=== PATIENT | male | born 1985 | race Caucasian/White ===

== ENCOUNTER 2018-01-17 13:43 | Inpatient (IN) | payer MEDICAID, SELFPAY ==
[2018-01-17] MEDS: HALOPERIDOL 5 MG TAB PO (14:22)
[2018-01-17] MEDS: ACETAMINOPHEN 325 MG TAB PO (14:24)
[2018-01-17 14:51] LABS: HEMOGLOBIN 15.1 g/dl (13.5-17.5); MEAN CORPUSCULAR HEMOGLOBIN 32.4 pg (27.0-33.0); MEAN CORPUSCULAR HGB CONC 35.1 g/dl (32.0-36.5); MEAN CORPUSCULAR VOLUME 92.3 fl (80.0-96.0); PLATELET COUNT, AUTOMATED 263 10^3/uL (150-450); RED BLOOD COUNT 4.66 10^6/uL (4.30-6.10); RED CELL DISTRIBUTION WIDTH 12.7 % (11.5-14.5); WHITE BLOOD COUNT 6.9 10^3/uL (4.0-10.0)
[2018-01-17 15:14] LABS: AMPHETAMINES LEVEL URINE NEGATIVE (NEGATIVE); BARBITURATES URINE NEGATIVE (NEGATIVE); BENZODIAZEPINES URINE NEGATIVE (NEGATIVE); CANNABINOIDS URINE NEGATIVE (NEGATIVE); COCAINE METABOLITE URINE NEGATIVE (NEGATIVE); METHADONE URINE NEGATIVE (NEGATIVE); OPIATES URINE NEGATIVE (NEGATIVE); PHENCYCLIDINE URINE NEGATIVE (NEGATIVE)
[2018-01-17 15:21] LABS: ALBUMIN/GLOBULIN RATIO 1.33 (1.00-1.93); ALKALINE PHOSPHATASE 80 U/L (45-117); ALT/SGPT 23 U/L (12-78); ANION GAP 11 MEQ/L (8-16); AST/SGOT 13 U/L (7-37); BILIRUBIN,DIRECT 0.1 MG/DL (0.0-0.2); BILIRUBIN,TOTAL 0.5 MG/DL (0.2-1.0); BLOOD UREA NITROGEN 8 MG/DL (7-18); CALCIUM LEVEL 8.8 MG/DL (8.5-10.1); CARBON DIOXIDE LEVEL 25 MEQ/L (21-32); CHLORIDE LEVEL 110 MEQ/L (98-107); CREATININE FOR GFR 1.47 MG/DL (0.70-1.30); ETHYL ALCOHOL (ETHANOL) 0.084 % (0.000-0.010); GLOMERULAR FILTRATION RATE 59.1 (>60); GLUCOSE, FASTING 86 MG/DL (70-100); POTASSIUM SERUM 3.6 MEQ/L (3.5-5.1); SALICYLATE LEVEL 2.4 MG/DL (5.0-30.0); SODIUM LEVEL 146 MEQ/L (136-145)
[2018-01-17 15:28] LABS: ACETAMINOPHEN LEVEL < 2.0 UG/ML (10.0-30.0)
[2018-01-17] MEDS ORDERED: MAALOX 30 ML SUSP *UDC PO (17:15)
[2018-01-17] MEDS ORDERED: MOM 30ML SUSPENSION UDC PO (17:15)
[2018-01-17] MEDS: traZODone 50 MG TAB PO (22:48)
[2018-01-17] MEDS: ACETAMINOPHEN TAB 650MG DOSE (2X325MG) PO (22:49)
[2018-01-18] MEDS: NICOTINE 21MG/24HR 1 EA TRANSDERMAL TD (08:58)
[2018-01-18 11:55] LABS: ANION GAP 7 MEQ/L (8-16); BLOOD UREA NITROGEN 10 MG/DL (7-18); CALCIUM LEVEL 8.8 MG/DL (8.5-10.1); CARBON DIOXIDE LEVEL 28 MEQ/L (21-32); CHLORIDE LEVEL 108 MEQ/L (98-107); CREATININE FOR GFR 1.28 MG/DL (0.70-1.30); GLOMERULAR FILTRATION RATE > 60.0 (>60); GLUCOSE, FASTING 82 MG/DL (70-100); POTASSIUM SERUM 4.1 MEQ/L (3.5-5.1); SODIUM LEVEL 143 MEQ/L (136-145)
[2018-01-18] MEDS: PALIPERIDONE 3 MG ER TAB (INVEGA) PO ×2 (12:00→21:25)
[2018-01-18] MEDS: traZODone 50 MG TAB PO (21:24)
[2018-01-19 07:23] LABS: ANION GAP 10 MEQ/L (8-16); BLOOD UREA NITROGEN 10 MG/DL (7-18); CALCIUM LEVEL 8.6 MG/DL (8.5-10.1); CARBON DIOXIDE LEVEL 25 MEQ/L (21-32); CHLORIDE LEVEL 109 MEQ/L (98-107); CREATININE FOR GFR 1.17 MG/DL (0.70-1.30); GLOMERULAR FILTRATION RATE > 60.0 (>60); GLUCOSE, FASTING 86 MG/DL (70-100); POTASSIUM SERUM 3.8 MEQ/L (3.5-5.1); SODIUM LEVEL 144 MEQ/L (136-145)
[2018-01-19] MEDS: PALIPERIDONE 3 MG ER TAB (INVEGA) PO ×2 (08:49→10:18)
[2018-01-19] MEDS: LORazepam 2 MG TAB PO (08:49)
[2018-01-19] MEDS: HALOPERIDOL 5 MG TAB PO (08:49)
[2018-01-19] MEDS: NICOTINE 21MG/24HR 1 EA TRANSDERMAL TD (08:52)
[2018-01-19] MEDS ORDERED: PALIPERIDONE 3 MG ER TAB (INVEGA) PO (09:00)
[2018-01-19] MEDS: OLANZapine ORAL DISINTEGRATING TAB 5MG PO ×2 (12:59→18:19)
[2018-01-19] MEDS: PALIPERIDONE 6 MG ER TAB (INVEGA) PO (21:00)
[2018-01-20] MEDS: OLANZapine ORAL DISINTEGRATING TAB 5MG PO ×5 (06:00→23:17)
[2018-01-20] MEDS: NICOTINE 21MG/24HR 1 EA TRANSDERMAL TD (09:00)
[2018-01-20] MEDS: PALIPERIDONE 6 MG ER TAB (INVEGA) PO ×2 (09:21→21:06)
[2018-01-20] MEDS: ACETAMINOPHEN TAB 650MG DOSE (2X325MG) PO (13:13)
[2018-01-21] MEDS: OLANZapine ORAL DISINTEGRATING TAB 5MG PO ×3 (06:19→17:41)
[2018-01-21] MEDS: NICOTINE 21MG/24HR 1 EA TRANSDERMAL TD (09:00)
[2018-01-21] MEDS: PALIPERIDONE 6 MG ER TAB (INVEGA) PO ×2 (09:02→20:45)
[2018-01-21] MEDS: LORazepam 2 MG TAB PO (09:03)
[2018-01-21] MEDS: traZODone 50 MG TAB PO (20:45)
[2018-01-22] MEDS: OLANZapine ORAL DISINTEGRATING TAB 5MG PO ×4 (00:15→20:04)
[2018-01-22] MEDS: NICOTINE 21MG/24HR 1 EA TRANSDERMAL TD (09:00)
[2018-01-22] MEDS: PALIPERIDONE 6 MG ER TAB (INVEGA) PO ×2 (09:00→10:20)
[2018-01-22] MEDS: LORazepam 2 MG TAB PO (13:12)
[2018-01-22] MEDS: PALIPERIDONE PALMITATE 234 MG/1.5 ML INJ (INVEGA SUSTENNA)(J2426) IM (13:51)
[2018-01-22] MEDS: PALIPERIDONE 3 MG ER TAB (INVEGA) PO (20:04)
[2018-01-22] MEDS: traZODone 50 MG TAB PO (20:04)
[2018-01-23] MEDS: OLANZapine ORAL DISINTEGRATING TAB 5MG PO ×2 (08:45→20:25)
[2018-01-23] MEDS: NICOTINE 21MG/24HR 1 EA TRANSDERMAL TD (08:46)
[2018-01-23] MEDS: PALIPERIDONE 3 MG ER TAB (INVEGA) PO ×2 (08:46→20:25)
[2018-01-23] MEDS: LORazepam 2 MG TAB PO ×2 (14:16→20:25)
[2018-01-23] MEDS: traZODone 50 MG TAB PO (20:25)
[2018-01-24] MEDS: PALIPERIDONE 3 MG ER TAB (INVEGA) PO ×2 (08:54→21:24)
[2018-01-24] MEDS: OLANZapine ORAL DISINTEGRATING TAB 5MG PO ×2 (08:55→21:24)
[2018-01-24] MEDS: NICOTINE 21MG/24HR 1 EA TRANSDERMAL TD (09:00)
[2018-01-25] MEDS: OLANZapine ORAL DISINTEGRATING TAB 5MG PO (10:01)
[2018-01-25] MEDS: PALIPERIDONE 3 MG ER TAB (INVEGA) PO (10:02)
[2018-01-25] MEDS: PALIPERIDONE PALMITATE 156 MG/1ML INJ(INVEGA SUSTENNA)(J2426) IM (10:05)
[2018-01-25] MEDS: NICOTINE 21MG/24HR 1 EA TRANSDERMAL TD (10:05)
== END 2018-01-25 12:20 | disposition home or self-care (01) | DRG 750 ==
LOC: M PSY 01-21 20:00 → M ED 13:43 → M PSY 01-18 18:35 → M ED INP 17:05 → M PSY 21:33
DX: F20.0 Paranoid schizophrenia (principal); E87.0 Hyperosmolality and hypernatremia; R45.851 Suicidal ideations; Z91.14 Patient's other noncompliance with medication regimen; F32.9 Major depressive disorder, single episode, unspecified; F17.200 Nicotine dependence, unspecified, uncomplicated; R79.89 Other specified abnormal findings of blood chemistry; R51 Headache; S51.811A Laceration without foreign body of right forearm, initial encounter; S51.812A Laceration without foreign body of left forearm, initial encounter; Z79.899 Other long term (current) drug therapy; Z88.5 Allergy status to narcotic agent; Z91.5 Personal history of self-harm; Y92.9 Unspecified place or not applicable; Y93.89 Activity, other specified; X78.9XXA Intentional self-harm by unspecified sharp object, initial encounter

== ENCOUNTER 2018-12-19 20:09 | Inpatient (IN) | payer MEDICAID, OTHER ==
[~2018-12-19 20:09] MED LIST: EXCETAB81 PO; INVE234I IM; OLAN5ZYD PO; PALI1TAB2 PO; TRAZ1TAB10 PO
[2018-12-19 20:51] LABS: HEMOGLOBIN 15.3 g/dl (13.5-17.5); MEAN CORPUSCULAR HEMOGLOBIN 33.6 pg (27.0-33.0); MEAN CORPUSCULAR HGB CONC 36.4 g/dl (32.0-36.5); MEAN CORPUSCULAR VOLUME 92.1 fl (80.0-96.0); PLATELET COUNT, AUTOMATED 275 10^3/uL (150-450); RED BLOOD COUNT 4.56 10^6/uL (4.30-6.10); WHITE BLOOD COUNT 9.1 10^3/uL (4.0-10.0)
[2018-12-19] MEDS ORDERED: LIDOCAINE 1% MDV 20ML VIAL SC ONE (21:15)
[2018-12-19] MEDS ORDERED: ADACEL/BOOSTRIX VACCINE (DIPHTH/PERTUSS/ACELL/TETANUS)0.5ML SYR (90715) IM ONE (21:15)
[2018-12-19 21:24] LABS: ACETAMINOPHEN LEVEL < 2.0 UG/ML (10.0-30.0); ALBUMIN 3.9 GM/DL (3.2-5.2); ALT/SGPT 26 U/L (12-78); BILIRUBIN,DIRECT 0.2 MG/DL (0.0-0.2); BILIRUBIN,TOTAL 0.5 MG/DL (0.2-1.0); BLOOD UREA NITROGEN 7 MG/DL (7-18); CALCIUM LEVEL 8.8 MG/DL (8.5-10.1); CARBON DIOXIDE LEVEL 23 MEQ/L (21-32); CHLORIDE LEVEL 111 MEQ/L (98-107); CREATININE FOR GFR 1.31 MG/DL (0.70-1.30); ETHYL ALCOHOL (ETHANOL) 0.198 % (0.000-0.010); GLOMERULAR FILTRATION RATE > 60.0 (>60); GLUCOSE, FASTING 96 MG/DL (70-100); POTASSIUM SERUM 3.4 MEQ/L (3.5-5.1); SODIUM LEVEL 143 MEQ/L (136-145); TOTAL PROTEIN 6.7 GM/DL (6.4-8.2)
[2018-12-19] MEDS ORDERED: POTASSIUM CHLORIDE 10 MEQ SR TABLET PO ONE (22:30)
[2018-12-20 00:15] LABS: AMPHETAMINES LEVEL URINE NEGATIVE (NEGATIVE); BARBITURATES URINE NEGATIVE (NEGATIVE); BENZODIAZEPINES URINE NEGATIVE (NEGATIVE); CANNABINOIDS URINE NEGATIVE (NEGATIVE); COCAINE METABOLITE URINE NEGATIVE (NEGATIVE); METHADONE URINE NEGATIVE (NEGATIVE); OPIATES URINE NEGATIVE (NEGATIVE); PHENCYCLIDINE URINE NEGATIVE (NEGATIVE)
[2018-12-20] MEDS ORDERED: MOM 30ML SUSPENSION UDC PO PRN (03:00)
[2018-12-20] MEDS ORDERED: ACETAMINOPHEN TAB 650MG DOSE (2X325MG) PO PRN (03:00)
[2018-12-20] MEDS ORDERED: MAALOX 30 ML SUSP *UDC PO PRN (03:00)
[2018-12-20] MEDS ORDERED: LORazepam 2 MG TAB PO PRN ×2 (03:00)
[2018-12-20] MEDS ORDERED: traZODone 50 MG TAB PO PRN (03:00)
[2018-12-20] MEDS ORDERED: HALOPERIDOL 5 MG TAB PO PRN (03:00)
[2018-12-20 03:48] VITALS: BP 138/75
[2018-12-20] MEDS: ACETAMINOPHEN 500 MG TAB PO ONE ×2 (08:30→08:50)
--- NOTE | 2018-12-20 08:39 | HPEPDOC ---
General Date of Admission Dec 20, 2018 at 02:53 Date of Service: Dec 20, 2018 Attending Physician: MICHELLE MICHAEL MD Chief Complaint The patient is a 33-year-old male admitted with a reason for visit of Unspecified Psychotic Disorder. History of Present Illness Christofer Ortez is a 33 year old male, PMH sig. for depression, alcohol abuse, brought to the ED on account of erratic behavior. On arrival patient supposedly was making comments to office stating he wanted them to shoot him. Also stated to staff, he wanted to fall asleep and never wake up. On assessment, he complains of a headache, denies nausea or vomiting. CT scan completed on admission with results pending.Denies nausea, abdominal pain, chest pain, SOB. Leveraging data was significant for elevated TSH and alcohol level of 0.198 Home Medications No Active Prescriptions or Reported Meds Allergies Coded Allergies: tramadol (Verified Allergy, Unknown, 12/19/18) Past Medical History Medical History Schizophrenia Depression Anxiety Alcohol abuse Surgical History Appendectomy Family History Significant Family History: No pertinent family hx Social History Alcohol: heavy A-FIB/CHADSVASC A-FIB History Current/History of A-Fib/PAF?: No Current PO Anticoag Therapy: No Review of Systems Other systems A limited review of systems is completed due to patient's mental status Physical Examination Other physical findings GENERAL: NAD SKIN : Warm, frontal scalp laceration with staple repair. HEENT: 3 frontal beth, normocephalic, PERRL, moist mucous membrane CARDIOVASCULAR: Regular rate and rhythm, S1S2, no JVD, no edema, distal pulses + palpable RESP: CTAB, no accessory muscle use noted ABDOMEN: BS+ non distended non tender MS: no joint deformities NEURO: Alert and oriented to self and place, CN2-12 grossly intact PSYCH: no anxiety or agitation, appropriate mood and affect. Vital Signs Vital Signs Date Time Temp Pulse Resp B/P (MAP) Pulse Ox O2 Delivery O2 Flow Rate FiO2 12/20/18 03:48 76 138/75 12/20/18 03:48 97.9 16 12/20/18 02:18 98 Room Air Laboratory Data Labs 24H Laboratory Tests 2 12/19/18 20:39: Nucleated Red Blood Cells % (auto) 0.0, Anion Gap 9, Glomerular Filtration Rate > 60.0, Calcium Level 8.8, Aspartate Amino Transf (AST/SGOT) 21, Alanine Aminotransferase (ALT/SGPT) 26, Alkaline Phosphatase 79, Total Bilirubin 0.5, Di rect Bilirubin 0.2, Total Protein 6.7, Albumin 3.9, Albumin/Globulin Ratio 1.39, Thyroid Stimulating Hormone (TSH) 5.910H, Salicylates Level 2.0L, Acetaminophen Level < 2.0L, Ethyl Alcohol Level 0.198H 12/19/18 23:47: Urine Amphetamines Screen NEGATIVE, Urine Benzodiazepines Screen NEGATIVE, Urine Opiates Screen NEGATIVE, Urine Methadone Screen NEGATIVE, Urine Barbiturates Screen NEGATIVE, Urine Phencyclidine Screen NEGATIVE, Urine Cocaine Metabolite Screen NEGATIVE, Urine Cannabinoids Screen NEGATIVE CBC/BMP Laboratory Tests 12/19/18 20:39 Red Blood Count 4.56, Mean Corpuscular Volume 92.1, Mean Corpuscular Hemoglobin 33.6 H, Mean Corpuscular Hemoglobin Concent 36.4, Red Cell Distribution Width 13.2 Assessment/Plan Headache -1000 mg Tylenol now -CT brain completed on admission with report pending -push fluids -Reevaluation based on CT brain findings Head laceration -s/p repair with 3 beth -complaining of headache on evaluation -follow CT scan findings Hypokalemia -repleted in ED -monitor levels and replete to keep >4 -assess for other metabolic derangement Elevated Creatinine -likely due to dehydration -monitor levels daily with treatment ETOH Abuse -ETOH 0.198 on admit -CIWA protocol per primary team Schizophrenia/depression -Management by primary team Plan / VTE VTE Prophylaxis Ordered?: No VTE Exclusion Mechanical Proph: Low Risk for VTE MITCHELL SHEA Dec 20, 2018 08:39
[2018-12-20] MEDS: THIAMINE 100 MG TAB PO SCH ×2 (09:00→21:00)
[2018-12-20] MEDS: MULTIVITAMINS/MINERALS THERAP 1 TAB PO SCH (09:00)
[2018-12-20] MEDS: FOLIC ACID 1 MG TAB PO SCH (09:00)
--- NOTE | 2018-12-20 09:32 | MHHPEPDOC ---
General Date Of Admission: Dec 20, 2018 Legal Status: 9.39 Chief Complaint "something to do with psych..I think" History of Present Illness HISTORY OF THE PRESENT ILLNESS: Patient is a 33 -year-old , male, who was brought to the ER after PD found him shaking road signs while acting obvious ly intoxicated. During his confrontation with police Mr. Beaulieu commented that the police should just shoot him, that he wanted to go to sleep and never wake up, and that he had a history of depression. Per PD, Mr. Beaulieu repeatedly and purposely hit his head against the cruiser read window on the way to the hospital, causing a laceration on his forehead. Per ED, Mr. Beaulieu stated that he had only 1 beer but his BAL was found to be 0.198 at the hospital. Mr. Beaulieu has been admitted to [facility] before in 2017 for psychotic symptoms (AH/VH) + SI and was diagnosed with paranoid schizophrenia and depression unspecified. He also has a history of alcohol, opioid, and nicotine abuse. Psychiatric Review of Systems Depression (2 or more weeks): depressed mood, insomnia/hypersomnia, difficulty concentrating, suicidal thoughts Kylee (4 or more days of): distractibility, engages in risky behavior, other (when intoxicated) Psychosis: denies (has a hx of auditory and visual hallucinations) PTSD: denies Anxiety: situational anxiety (Large crowds) Anxiety/ 6 months or more of: restlessness, keyed up, difficulty concentrating, irritability Past Psychiatric History Previous Psychiatric Diagnosis: Paranoid schizophrenia. Unspecified depression. Previous Psychiatric Admissions: Admitted in January 2018 to [facility] for SI + AH/VH Suicide Attempts: 1 attempt. Cut himself with knife. Psychiatric Follow-up: Went to [facility] after 2018 [facility] hospitalization. Picked up meds but haven't taken them in awhile. Psychiatric medications: Not currently taking any medications. "its been awhile since i've taken them" Past Medical History Head Injury: Yes (laceration on forehead from banging head against police car window. ) Seizures: No Hospitalizations: Yes ([facility] in January 2018 for AH,VH, self inflicted harm and connolly. ) Surgeries: Yes (Appendectomy) Family Medical/Psychiatric HX Psychiatric Disorders: No Addiction: No Suicide Attemps/Completions: No Addiction History nicotine, alcohol, opioids (Denies addiction or misuse but file says had dependence and withdrawals. ) Social History Childhood: Grew up in [place]. Parents split up when he was a kid. Lived with mom. Says childhood was "good. Not good. I don't know" Abuse/Trauma: "I don't know its hard to think" Current Living Situation: Lives alone in [place]. Moved from [place] in 2018 Education: Didn't graduate HS, unsure where we went Employment: Hasn't worked in a while. Social Support: Sister lives in area but doesn't communicate with her that often Legal: denies Marital: Single. Has 2 boys. Mental Status Examination General Appearance: unkempt, hospital scubs/clothing, lacerations, healed scars Build: average Demeanor: average, mistrustful, withdrawn, very figety Eye Contact: average Activity: average, anxious Behavior: cooperative Speech: clear Mood: euthymic, irritable Mood "alright" Affect: full, appropriate, congruent, anxious Thought Process: logical/linear, slow Thought Content (Delusions): denies SI, HI, AVH Thought Content (Other): none reported, appropriate Thought Content (Aggressive): none reported Perception (Hallucinations): none reported Perception (Other): none reported Cognition (Impairment of): none reported Cognition(Intelligence Est.): average Oriented: Awake, Alert, Oriented times three Insight: fair Judgment: Fair Psychosis: Denies Diagnoses unspecified depression alcohol use d/o 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 Beaulieu came into [facility] this morning after PD found him shaking street signs and states he's here b/c "I gashed my head open... I think I asked the form designer to shoot me" while intoxicated. He is anger that he has to be here. Mr. Beaulieu's denies that he wants to harm himself and would like to go home soon. Feels better after he's sobered up he states. He denies SI or HI. He is unable to say why he shook the street signs. Denies symptoms of depression. Denies alcohol withdrawal. Pt is cooperative on the unit and when seen. He denies hallucination, delusions. Feels safe here. Initial Treatment Plan 1. Patient was admitted on a status. 2. Complete history was obtained. 3. With patients permission, family will be contacted and database will be expanded. 4. Patients medication regimen will be reviewed and changed accordingly. 5. Patient will be provided with protected environment. 6. Patient will be treated with individual, group, and milieu therapies. 7. Patient will receive supportive psych-education. 8. Discharge planning will commence immediately. 9. Outpatient follow-up treatment will be strongly recommended. 10. The initial treatment plan will focus initially on: * Depression. * Risk for suicide. * Substance abuse. 11. monitor for safety ESTIMATED LENGTH OF STAY: 3-5 DAYS. TIME SPENT COUNSELING AND COORDINATING INITIAL CARE: 60 minutes. Vital Signs Vital Signs Date Time Temp Pulse Resp B/P (MAP) Pulse Ox O2 Delivery O2 Flow Rate FiO2 12/20/18 03:48 76 138/75 12/20/18 03:48 97.9 16 12/20/18 02:18 98 Room Air Laboratory Data 24H Labs Laboratory Tests 2 12/19/18 20:39: Nucleated Red Blood Cells % (auto) 0.0, Anion Gap 9, Glomerular Filtration Rate > 60.0, Calcium Level 8.8, Aspartate Amino Transf (AST/SGOT) 21, Alanine Aminotransferase (ALT/SGPT) 26, Alkaline Phosphatase 79, Total Bilirubin 0.5, Direct Bilirubin 0.2, Total Protein 6.7, Albumin 3.9, Albumin/Globulin Ratio 1.39, Thyroid Stimulating Hormone (TSH) 5.910H, Salicylates Level 2.0L, Acetaminophen Level < 2.0L, Ethyl Alcohol Level 0.198H 12/19/18 23:47: Urine Amphetamines Screen NEGATIVE, Urine Benzodiazepines Screen NEGATIVE, Urine Opiates Screen NEGATIVE, Urine Methadone Screen NEGATIVE, Urine Barbiturates Screen NEGATIVE, Urine Phencyclidine Screen NEGATIVE, Urine Cocaine Metabolite Screen NEGATIVE, Urine Cannabinoids Screen NEGATIVE CBC/BMP Laboratory Tests 12/19/18 20:39 Red Blood Count 4.56, Mean Corpuscular Volume 92.1, Mean Corpuscular Hemoglobin 33.6 H, Mean Corpuscular Hemoglobin Concent 36.4, Red Cell Distribution Width 13.2 Medications No Active Prescriptions or Reported Meds Allergies Coded Allergies: tramadol (Verified Allergy, Unknown, 12/19/18) JANN DAVIS OMS-3 Dec 20, 2018 08:13 JULIANA MEJIA DO Dec 20, 2018 09:32
[2018-12-20] MEDS: NICOTINE 21MG/24HR 1 EA TRANSDERMAL TD SCH (10:56)
[2018-12-20 11:05] LABS: ALBUMIN 3.9 GM/DL (3.2-5.2); ALT/SGPT 25 U/L (12-78); BILIRUBIN,TOTAL 0.7 MG/DL (0.2-1.0); BLOOD UREA NITROGEN 5 MG/DL (7-18); CALCIUM LEVEL 9.4 MG/DL (8.5-10.1); CARBON DIOXIDE LEVEL 33 MEQ/L (21-32); CHLORIDE LEVEL 109 MEQ/L (98-107); CREATININE FOR GFR 1.03 MG/DL (0.70-1.30); GLOMERULAR FILTRATION RATE > 60.0 (>60); GLUCOSE, FASTING 83 MG/DL (70-100); SODIUM LEVEL 144 MEQ/L (136-145); TOTAL PROTEIN 6.6 GM/DL (6.4-8.2)
--- NOTE | 2018-12-20 11:42 | REP ---
CT HEAD WITHOUT CONTRAST: HISTORY: Trauma COMPARISON: 01/17/2018 There is no intraparenchymal hemorrhage, mass or midline shift. The ventricular system is normal in appearance. There is no extracerebral collection. There is no fracture. Mucosal thickening is present in the left ethmoid sinus. Soft tissue swelling is present over the left frontal bone. IMPRESSION: There is no intracranial lesion. Electronically Signed by Everardo Orta MD 12/20/2018 12:24 P
--- NOTE | 2018-12-20 11:43 | REP ---
CT CERVICAL SPINE WITHOUT CONTRAST: HISTORY: Trauma. There is no acute fracture or subluxation. A disc bulge is present at the C5-6 level. There is minimal narrowing of the spinal canal. There is no other disc bulge or herniation. The remaining neural foramina are patent. The intervertebral discs are normal in height. T here is loss of the normal lordotic curve. IMPRESSION: 1. There is no acute fracture or subluxation. 2. There is cervical spondylosis at the C5-6 level. Electronically Signed by Everardo Orta MD 12/20/2018 12:24 P
[2018-12-20 18:00] VITALS: BP 140/81
[2018-12-20 22:34] VITALS: BP 140/81
[2018-12-21 06:45] VITALS: BP 115/71
[2018-12-21 06:56] VITALS: BP 115/71
[2018-12-21 07:07] LABS: HEMATOCRIT 42.6 % (42.0-52.0); HEMOGLOBIN 14.9 g/dl (13.5-17.5); MEAN CORPUSCULAR VOLUME 94.5 fl (80.0-96.0); PLATELET COUNT, AUTOMATED 228 10^3/uL (150-450); RED BLOOD COUNT 4.51 10^6/uL (4.30-6.10)
[2018-12-21 07:29] LABS: ALBUMIN 3.5 GM/DL (3.2-5.2); ALT/SGPT 25 U/L (12-78); BILIRUBIN,TOTAL 1.2 MG/DL (0.2-1.0); BLOOD UREA NITROGEN 8 MG/DL (7-18); CALCIUM LEVEL 9.1 MG/DL (8.5-10.1); CARBON DIOXIDE LEVEL 30 MEQ/L (21-32); CHLORIDE LEVEL 108 MEQ/L (98-107); CREATININE FOR GFR 1.23 MG/DL (0.70-1.30); GLOMERULAR FILTRATION RATE > 60.0 (>60); GLUCOSE, FASTING 85 MG/DL (70-100); MAGNESIUM LEVEL 2.1 MG/DL (1.8-2.4); POTASSIUM SERUM 3.9 MEQ/L (3.5-5.1); SODIUM LEVEL 143 MEQ/L (136-145); TOTAL PROTEIN 6.3 GM/DL (6.4-8.2)
[2018-12-21] MEDS: NICOTINE 21MG/24HR 1 EA TRANSDERMAL TD SCH (09:00)
[2018-12-21] MEDS: THIAMINE 100 MG TAB PO SCH ×2 (09:00→21:00)
[2018-12-21] MEDS: MULTIVITAMINS/MINERALS THERAP 1 TAB PO SCH (09:00)
[2018-12-21] MEDS: FOLIC ACID 1 MG TAB PO SCH (09:00)
--- NOTE | 2018-12-21 09:05 | IPNPDOC ---
Text Note Date of Service The patient was seen on 12/21/18. NOTE Christofer Ortez is a 33 year old male, PMH sig. for depression, alcohol ab use, brought to the ED on account of erratic behavior. Subjective: Denies headache, states he feels fine this morning, no chest pain, no shortness of breath. Physical Examination GENERAL: NAD SKIN : Warm, frontal scalp laceration with staple repair. HEENT: 3 frontal beth, normocephalic, PERRL, moist mucous membrane CARDIOVASCULAR: Regular rate and rhythm, S1S2, no JVD, no edema, distal pulses + palpable RESP: CTAB, no accessory muscle use noted ABDOMEN: BS+ non distended non tender MS: no joint deformities NEURO: Alert and oriented to self and place, CN2-12 grossly intact PSYCH: no anxiety or agitation, appropriate mood and affect. Assessment/Plan Headache -CT brain negative for intracranial abnormality -continue to push fluids Head laceration -s/p repair with 3 beth -staple removal when scalp laceration healed Hypokalemia -repleted, normalized -Mg levels WNL Elevated Creatinine -likely due to dehydration -resolved ETOH Abuse -ETOH 0.198 on admit -CIWA protocol per primary team Schizophrenia/depression -Management by primary team Christina ARNOLD I+O VSChristina I+O Laboratory Tests 12/20/18 09:41 Calcium Level 9.4, Aspartate Amino Transf (AST/SGOT) 22, Alanine Aminotransferase (ALT/SGPT) 25, Alkaline Phosphatase 83, Total Bilirubin 0.7, Total Protein 6.6, Albumin 3.9 12/21/18 06:48 Calcium Level 9.1, Aspartate Amino Transf (AST/SGOT) 18, Alanine Aminotransferase (ALT/SGPT) 25, Alkaline Phosphatase 84, Total Bilirubin 1.2 #H, Total Protein 6.3 L, Albumin 3.5, Red Blood Count 4.51, Mean Corpuscular Volume 94.5, Mean Corpuscular Hemoglobin 33.0, Mean Corpuscular Hemoglobin Concent 35.0, Red Cell Distribution Width 13.3 Vital Signs Date Time Temp Pulse Resp B/P (MAP) Pulse Ox O2 Delivery O2 Flow Rate FiO2 12/21/18 06:56 68 115/71 12/21/18 06:45 98.0 16 12/20/18 02:18 98 Room Air OTUBELU,ADAORA C. [facility] Dec 21, 2018 09:05
--- NOTE | 2018-12-21 10:39 | MHIPNPDOC ---
[facility] Progress Note Progress Note DATE OF SERVICE: 12/21/18 HISTORY: Patient is a 33 -year-old , male, who was brought to the ER after PD found him shaking road signs while acting obviously intoxicated. During his confrontation with police Mr. Beaulieu commented that the police should just shoot him, that he wanted to go to sleep and never wake up, and that he had a history of depression. Per PD, Mr. Beaulieu repeatedly and purposely hit his head against the cruiser read window on the way to the hospital, causing a laceration on his forehead. Per ED, Mr. Beaulieu stated that he had only 1 beer but his BAL was found to be 0.198 at the hospital. Mr. Beaulieu has been admitted to [facility] before in 2018 for psychotic symptoms (AH/VH) + SI and was diagnosed with paranoid schizophrenia and depression unspecified. He also has a history of alcohol, opioid, and nicotine abuse. Mr. Beaulieu came into [facility] this morning after PD found him shaking street signs and states he's here b/c "I gashed my head open... I think I asked the pvc loader to shoot me" while intoxicated. He is anger that he has to be here. Mr. Beaulieu's denies that he wants to harm himself and would like to go home soon. Feels better after he's sobered up he states. He denies SI or HI. He is unable to say why he shook the street signs. Denies symptoms of depression. Denies alcohol withdrawal. Pt is cooperative on the unit and when seen. He denies hallucination, delusions. Feels safe here. VITAL SIGNS: See below. NEW TEST RESULTS: See below. CURRENT MEDICATIONS: See below. MENTAL STATUS EXAMINATION: General Appearance: unkempt, hospital scrubs/clothing, lacerations, healed scars Build: average Demeanor: average, mistrustful, withdrawn, very figety Eye Contact: average Activity: average, anxious Behavior: cooperative Speech: clear Mood: Dysphoric, irritable Mood "I don't know whats going on. I just want to get out of here" Affect: flat, depressed, congruent, anxious Thought Process: Disorganized, slow Thought Content (Delusions): denies SI, HI, AVH Thought Content (Other): none reported, appropriate Thought Content (Aggressive): none reported Perception (Hallucinations): Unknown. Pt was unresponsive to questioning. He just says "I don't know" or nothing at all when asked questions. Perception (Other): Unknown. Pt was unresponsive to questioning. He just says "I don't know" or nothing at all when asked questions. Cognition (Impairment of): memory, attention, states he feels confused Cognition(Intelligence Est.): average Oriented: Pt was in his bed just laying with eyes open staring at ceiling. Knows he is in [facility] but doesn't know what is going on. Insight: poor Judgment: poor Psychosis: Unknown. Pt was unresponsive to questioning. He just says "I don't know" or nothing at all when asked questions. 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 Today, he refused to leave his bed and come into the office for any follow up from yesterday. When asked about hallucinations, reason for being here, or what he can remember from yesterday Carlos just says "I don't know" or remains silent holding his . He says he "just wants to get out of here" so he is probably aware of his location and inability to leave freely. His thought processes seems to have become disorganized and he has been reported to have been responding to internal stimuli by staff. Talked with pt about start invega bid to help his confusion, disorganized thoughts and states "I don't know... I don't think I want to." Asked pt to just give medication a try to see if it helps as he agrees it is "scary" to him and uncomfortable that he feels so confused/disorganized today. Denies SI/HI. MANAGEMENT PLAN: Start Invega Medications: Invega 3mg bid TIME SPENT: 30 minutes. Vital Signs Vital Signs Date Time Temp Pulse Resp B/P (MAP) Pulse Ox O2 Delivery O2 Flow Rate FiO2 12/21/18 06:56 68 115/71 12/21/18 06:45 98.0 16 12/20/18 02:18 98 Room Air Laboratory Data 24H Labs Laboratory Tests 2 12/20/18 09:41: Anion Gap 2L, Glomerular Filtration Rate > 60.0, Blood Urea Nitrogen 5L, Creatinine 1.03, Sodium Level 144, Potassium Level 4.0, Chloride Level 109H, Carbon Dioxide Level 33H, Calcium Level 9.4, Aspartate Amino Transf (AST/SGOT) 22, Alanine Aminotransferase (ALT/SGPT) 25, Alkaline Phosphatase 83, Total Bilirubin 0.7, Total Protein 6.6, Albumin 3.9, Albumin/Globulin Ratio 1.44 12/21/18 06:48: Anion Gap 5L, Glomerular Filtration Rate > 60.0, Blood Urea Nitrogen 8#, Creatinine 1.23, Sodium Level 143, Potassium Level 3.9, Chloride Level 108H, Carbon Dioxide Level 30, Calcium Level 9.1, Aspartate Amino Transf (AST/SGOT) 18 , Alanine Aminotransferase (ALT/SGPT) 25, Alkaline Phosphatase 84, Total Bilirubin 1.2#H, Total Protein 6.3L, Albumin 3.5, Albumin/Globulin Ratio 1.25, Nucleated Red Blood Cells % (auto) 0.0, Magnesium Level 2.1 CBC/BMP Laboratory Tests 12/20/18 09:41 Calcium Level 9.4, Aspartate Amino Transf (AST/SGOT) 22, Alanine Aminotransferase (ALT/SGPT) 25, Alkaline Phosphatase 83, Total Bilirubin 0.7, Total Protein 6.6, Albumin 3.9 12/21/18 06:48 Calcium Level 9.1, Aspartate Amino Transf (AST/SGOT) 18, Alanine Aminotransferase (ALT/SGPT) 25, Alkaline Phosphatase 84, Total Bilirubin 1.2 #H, Total Protein 6.3 L, Albumin 3.5, Red Blood Count 4.51, Mean Corpuscular Volume 94.5, Mean Corpuscular Hemoglobin 33.0, Mean Corpuscular Hemoglobin Concent 35.0, Red Cell Distribution Width 13.3 Current Medications Current Medications Medications (Trade) Dose Ordered Sig/Jean Claude Route PRN Reason Start Time Stop Time Status Last Admin Dose Admin Acetaminophen (Tylenol Tab) 650 mg Q6HP PRN PO HEADACHE or DISCOMFORT 12/20/18 03:00 Al Hydrox/Mg Hydrox/Simethicone (Mylanta) 30 ml Q4HP PRN PO HEARTBURN/INDIGESTION 12/20/18 03:00 Folic Acid (Folic Acid) 1 mg DAILY PO 12/20/18 09:00 Haloperidol (Haldol) 5 mg Q6HP PRN PO anxiety/agitation 12/20/18 03:00 Home Med (Med Rec Complete!) ASDIRECTED XX 12/20/18 03:00 12/20/18 03:06 DC Lorazepam (Ativan) 2 mg ASDIRECTED PRN PO SEE PROTOCOL 12/20/18 03:00 Lorazepam (Ativan) 2 mg Q6HP PRN PO anxiety/agitation 12/20/18 03:00 Magnesium Hydroxide (Milk Of Magnesia) 30 ml DAILYPRN PRN PO CONSTIPATION 12/20/18 03:00 Multivitamins (Theragram-M) 1 tab DAILY PO 12/20/18 09:00 Nicotine (Nicoderm Cq 21mg) 1 patch DAILY TD 12/20/18 09:00 Thiamine HCl (Thiamine HCl) 100 mg BID PO 12/20/18 09:00 12/23/18 08:59 Trazodone HCl (Desyrel) 50 mg QHSP PRN PO INSOMNIA 12/20/18 03:00 Allergies Coded Allergies: tramadol (Verified Allergy, Unknown, 12/19/18) JULIANA MEJIA DO Dec 21, 2018 9:11 am
[2018-12-21] MEDS ORDERED: PALIPERIDONE 3 MG ER TAB (INVEGA) PO ONE (11:15)
[2018-12-21 18:10] VITALS: BP 129/72
[2018-12-21] MEDS: PALIPERIDONE 3 MG ER TAB (INVEGA) PO SCH (21:00)
[2018-12-22 06:48] VITALS: BP 125/81
[2018-12-22 08:31] VITALS: BP 125/81
[2018-12-22] MEDS: FOLIC ACID 1 MG TAB PO SCH (09:00)
[2018-12-22] MEDS: NICOTINE 21MG/24HR 1 EA TRANSDERMAL TD SCH (09:00)
[2018-12-22] MEDS: PALIPERIDONE 3 MG ER TAB (INVEGA) PO SCH ×2 (09:00→21:00)
[2018-12-22] MEDS: THIAMINE 100 MG TAB PO SCH ×2 (09:00→21:00)
[2018-12-22] MEDS: MULTIVITAMINS/MINERALS THERAP 1 TAB PO SCH (09:00)
[2018-12-22 13:53] VITALS: BP 117/69
[2018-12-22 18:00] VITALS: BP 120/75
--- NOTE | 2018-12-22 18:35 | MHIPNPDOC ---
[facility] Progress Note Progress Note DATE OF SERVICE: 12/22/18 HISTORY: Patient is a 33 -year-old , male, who was brought to the ER after PD found him shaking road signs while acting obviously intoxicated. During his confrontation with police Mr. Beaulieu commented that the police should just shoot him, that he wanted to go to sleep and never wake up, and that he had a history of depression. Per PD, Mr. Beaulieu repeatedly and purposely hit his head against the cruiser read window on the way to the hospital, causing a laceration on his forehead. Per ED, Mr. Beaulieu stated that he had only 1 beer but his BAL was found to be 0.198 at the hospital. Mr. Beaulieu has been admitted to [facility] before in 2018 for psychotic symptoms (AH/VH) + SI and was diagnosed with paranoid schizophrenia and depression unspecified. He also has a history of alcohol, opioid, and nicotine abuse. [facility]. [facility]ul[facility] this morning after PD found him shaking street signs and states he's here b/c "I gashed my head open... I think I asked the arm maker to shoot me" while intoxicated. He is anger that he has to be here. Mr. Beaulieu's denies that he wants to harm himself and would like to go home soon. Feels better after he's sobered up he states. He denies SI or HI. He is unable to say why he shook the street signs. Denies symptoms of depression. Denies alcohol withdrawal. Pt is cooperative on the unit and when seen. He denies hallucination, delusions. Feels safe here. VITAL SIGNS: See below. NEW TEST RESULTS: See below. CURRENT MEDICATIONS: See below. MENTAL STATUS EXAMINATION: General Appearance: unkempt, hospital scrubs/clothing, lacerations, healed scars Build: average Demeanor: average, mistrustful, withdrawn, very figety Eye Contact: average Activity: calm, psychomotor retardation Behavior: cooperative Speech: clear, not spontaneous, not fluent. Delayed responses Mood: "OK" Mood "I just want to leave this place" Affect: constricted, flat, depressed Thought Process: Disorganized, slow Thought Content (Delusions): denies SI, HI, AVH Thought Content (Other): none reported, appropriate Thought Content (Aggressive): none reported Perception (Hallucinations): he denies AV hallucinations but he seems to be responding to internal stimuli Perception (Other): Please see above Cognition (Impairment of): executive function, he has thought blocking, he seems confused Cognition(Intelligence Est.): average Oriented: to place and person, not to date or time Insight: poor Judgment: poor Psychosis: he seems to be responding to internal stimuli DIAGNOSES: Paranoid schizophrenia unspecified depression alcohol use d/o 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 Eventually he got up and came to the office to speak but the only thing he spontaneously said was : "When am I going to leave this place?". he kept staring at the wall and smiled occasionally to someone that was not there. When this program writer asked him if he had a job, he smirked and then after awhile he said he worked by himself and I asked where did he work, he answered with a smirk: "wherever the path takes me". He bradley psychomotor retardation, delayed responses and he has problems with his executive functioning at this time, for example, he had problems opening the door in the office. He was able to do it until I told him that he should turn the know to the right. The patient might be a little catatonic, maybe a little bit of Ativan would benefit, just as a trial. w MANAGEMENT PLAN: As per Dr. Wyman. Start Invega Medications: Invega 3mg bid TIME SPENT: 20 minutes. Vital Signs Vital Signs Date Time Temp Pulse Resp B/P (MAP) Pulse Ox O2 Delivery O2 Flow Rate FiO2 12/22/18 18:00 98.1 63 15 120/75 (90) 12/22/18 08:31 98 12/20/18 02:18 Room Air Current Medications Current Medications Medications (Trade) Dose Ordered Sig/Jean Claude Route PRN Reason Start Time Stop Time Status Last Admin Dose Admin Acetaminophen (Tylenol Tab) 650 mg Q6HP PRN PO HEADACHE or DISCOMFORT 12/20/18 03:00 Al Hydrox/Mg Hydrox/Simethicone (Mylanta) 30 ml Q4HP PRN PO HEARTBURN/INDIGESTION 12/20/18 03:00 Folic Acid (Folic Acid) 1 mg DAILY PO 12/20/18 09:00 Haloperidol (Haldol) 5 mg Q6HP PRN PO anxiety/agitation 12/20/18 03:00 Home Med (Med Rec Complete!) ASDIRECTED XX 12/20/18 03:00 12/20/18 03:06 DC Lorazepam (Ativan) 2 mg ASDIRECTED PRN PO SEE PROTOCOL 12/20/18 03:00 Lorazepam (Ativan) 2 mg Q6HP PRN PO anxiety/agitation 12/20/18 03:00 Magnesium Hydroxide (Milk Of Magnesia) 30 ml DAILYPRN PRN PO CONSTIPATION 12/20/18 03:00 Multivitamins (Theragram-M) 1 tab DAILY PO 12/20/18 09:00 Nicotine (Nicoderm Cq 21mg) 1 patch DAILY TD 12/20/18 09:00 Paliperidone (Invega) 3 mg BID PO 12/21/18 21:00 Thiamine HCl (Thiamine HCl) 100 mg BID PO 12/20/18 09:00 12/23/18 08:59 Trazodone HCl (Desyrel) 50 mg QHSP PRN PO INSOMNIA 12/20/18 03:00 Allergies Coded Allergies: tramadol (Verified Allergy, Unknown, 12/19/18) CHARBEL BONNER MD Dec 22, 2018 18:35
[2018-12-23 06:32] VITALS: BP 122/77
[2018-12-23 06:33] VITALS: BP 122/77
[2018-12-23 07:34] VITALS: BP 114/70
[2018-12-23] MEDS: PALIPERIDONE 3 MG ER TAB (INVEGA) PO SCH (09:00)
[2018-12-23] MEDS: MULTIVITAMINS/MINERALS THERAP 1 TAB PO SCH (09:00)
[2018-12-23] MEDS: FOLIC ACID 1 MG TAB PO SCH (09:00)
[2018-12-23] MEDS: NICOTINE 21MG/24HR 1 EA TRANSDERMAL TD SCH (09:00)
--- NOTE | 2018-12-23 13:05 | MHIPNPDOC ---
[facility] Progress Note Progress Note DATE OF SERVICE: 12/23/18 HISTORY: Patient is a 33 -year-old , male, who was brought to the ER after PD found him shaking road signs while acting obviously intoxicated. During his confrontation with police Mr. Beaulieu commented that the police should just shoot him, that he wanted to go to sleep and never wake up, and that he had a history of depression. Per PD, Mr. Beaulieu repeatedly and purposely hit his head against the cruiser read window on the way to the hospital, causing a laceration on his forehead. Per ED, Mr. Beaulieu stated that he had only 1 beer but his BAL was found to be 0.198 at the hospital. Mr. Beaulieu has been admitted to [facility] before in 2018 for psychotic symptoms (AH/VH) + SI and was diagnosed with paranoid schizophrenia and depression unspecified. He also has a history of alcohol, opioid, and nicotine abuse. Mr. Beaulieu came into [facility] this morning after PD found him shaking street signs and states he's here b/c "I gashed my head open... I think I asked the floor coverings salesperson to shoot me" while intoxicated. He is anger that he has to be here. Mr. Beaulieu's denies that he wants to harm himself and would like to go home soon. Feels better after he's sobered up he states. He denies SI or HI. He is unable to say why he shook the street signs. Denies symptoms of depression. Denies alcohol withdrawal. Pt is cooperative on the unit and when seen. He denies hallucination, delusions. Feels safe here. VITAL SIGNS: See below. NEW TEST RESULTS: See below. CURRENT MEDICATIONS: See below. MENTAL STATUS EXAMINATION: General Appearance: unkempt, hospital scrubs/clothing, lacerations, healed scars Build: average Demeanor: average, mistrustful, withdrawn, very figety Eye Contact: average Activity: calm, psychomotor retardation Behavior: cooperative Speech: clear, not spontaneous, not fluent. Delayed responses Mood: "OK" Mood "I just want to leave this place" Affect: constricted, flat, depressed Thought Process: Disorganized, slow Thought Content (Delusions): denies SI, HI, AVH Thought Content (Other): none reported, appropriate Thought Content (Aggressive): none reported Perception (Hallucinations): he denies AV hallucinations but he seems to be responding to internal stimuli Perception (Other): Please see above Cognition (Impairment of): executive function, he has thought blocking, he seems confused Cognition(Intelligence Est.): average Oriented: to place and person, not to date or time Insight: poor Judgment: poor Psychosis: he seems to be responding to internal stimuli DIAGNOSES: Paranoid schizophrenia unspecified depression alcohol use d/o 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 He was sitting on his bed, looking down, looking depressed when I walked into his room. His arms were crossed on his chest. He seems to be depressed, maybe it would be worth trying antidepressants and maybe some Ativan to r/o catatonia would help. I think his Invega could be increased too, I will increase today's night dose to [address] Li will evaluate tomorrow if he continues on 3 mgs PO BID or he shows some improvement with 6 mgs Po QHS and 3 mgs in a.m. MANAGEMENT PLAN: As per Dr. Wyman. Start Invega Medications: Invega 6 mgs PO QHS and 3 mgs PO QAM TIME SPENT: 20 minutes. Vital Signs Vital Signs Date Time Temp Pulse Resp B/P (MAP) Pulse Ox O2 Delivery O2 Flow Rate FiO2 12/23/18 06:33 83 122/77 12/23/18 06:32 98.0 12 12/22/18 08:31 98 12/20/18 02:18 Room Air Current Medications Current Medications Medications (Trade) Dose Ordered Sig/Jean Claude Route PRN Reason Start Time Stop Time Status Last Admin Dose Admin Acetaminophen (Tylenol Tab) 650 mg Q6HP PRN PO HEADACHE or DISCOMFORT 12/20/18 03:00 Al Hydrox/Mg Hydrox/Simethicone (Mylanta) 30 ml Q4HP PRN PO HEARTBURN/INDIGESTION 12/20/18 03:00 Folic Acid (Folic Acid) 1 mg DAILY PO 12/20/18 09:00 Haloperidol (Haldol) 5 mg Q6HP PRN PO anxiety/agitation 12/20/18 03:00 Home Med (Med Rec Complete!) ASDIRECTED XX 12/20/18 03:00 12/20/18 03:06 DC Lorazepam (Ativan) 2 mg ASDIRECTED PRN PO SEE PROTOCOL 12/20/18 03:00 Lorazepam (Ativan) 2 mg Q6HP PRN PO anxiety/agitation 12/20/18 03:00 Magnesium Hydroxide (Milk Of Magnesia) 30 ml DAILYPRN PRN PO CONSTIPATION 12/20/18 03:00 Multivitamins (Theragram-M) 1 tab DAILY PO 12/20/18 09:00 Nicotine (Nicoderm Cq 21mg) 1 patch DAILY TD 12/20/18 09:00 Paliperidone (Invega) 3 mg BID PO 12/21/18 21:00 Thiamine HCl (Thiamine HCl) 100 mg BID PO 12/20/18 09:00 12/23/18 08:59 DC Trazodone HCl (Desyrel) 50 mg QHSP PRN PO INSOMNIA 12/20/18 03:00 Allergies Coded Allergies: tramadol (Verified Allergy, Unknown, 12/19/18) CHARBEL BONNER MD Dec 23, 2018 12:11
[2018-12-23] MEDS ORDERED: diphenhydrAMINE 25 MG CAP PO PRN (13:15)
[2018-12-23 18:00] VITALS: BP 133/90
[2018-12-23] MEDS: PALIPERIDONE 6 MG ER TAB (INVEGA) PO SCH (21:00)
[2018-12-24 06:43] VITALS: BP 93/50
[2018-12-24 07:36] VITALS: BP 93/50
[2018-12-24] MEDS: NICOTINE 21MG/24HR 1 EA TRANSDERMAL TD SCH (09:00)
[2018-12-24] MEDS: MULTIVITAMINS/MINERALS THERAP 1 TAB PO SCH (09:00)
[2018-12-24] MEDS: FOLIC ACID 1 MG TAB PO SCH (09:00)
[2018-12-24] MEDS: PALIPERIDONE 3 MG ER TAB (INVEGA) PO SCH (09:00)
--- NOTE | 2018-12-24 11:08 | MHIPNPDOC ---
[facility] Progress Note Progress Note DATE OF SERVICE: 12/24/18 HISTORY: Patient is a 33 -year-old , male, who was brought to the ER after PD found him shaking road signs while acting obviously intoxicated. During his confrontation with police Mr. Beaulieu commented that the police should just shoot him, that he wanted to go to sleep and never wake up, and that he had a history of depression. Per PD, Mr. Beaulieu repeatedly and purposely hit his head against the cruiser read window on the way to the hospital, causing a laceration on his forehead. Per ED, Mr. Beaulieu stated that he had only 1 beer but his BAL was found to be 0.198 at the hospital. Mr. Beaulieu has been admitted to [facility] before in 2018 for psychotic symptoms (AH/VH) + SI and was diagnosed with paranoid schizophrenia and depression unspecified. He also has a history of alcohol, opioid, and nicotine abuse. Mr. Beaulieu came into [facility] this morning after PD found him shaking street signs and states he's here b/c "I gashed my head open... I think I asked the waterproofing mixer to shoot me" while intoxicated. He is anger that he has to be here. Mr. Beaulieu's denies that he wants to harm himself and would like to go home soon. Feels better after he's sobered up he states. He denies SI or HI. He is unable to say why he shook the street signs. Denies symptoms of depression. Denies alcohol withdrawal. Pt is cooperative on the unit and when seen. He denies hallucination, delusions. Feels safe here. VITAL SIGNS: See below. NEW TEST RESULTS: See below. CURRENT MEDICATIONS: See below. MENTAL STATUS EXAMINATION: General Appearance: unkempt, hospital scrubs/clothing, lacerations, healed scars Build: average Demeanor: average, mistrustful, withdrawn, very fidgety Eye Contact: average Activity: calm, psychomotor retardation Behavior: cooperative Speech: clear, not spontaneous, not fluent. Delayed responses Mood: "OK" Mood "I want to leave" Affect: constricted, flat, depressed Thought Process: Disorganized, slow, blocked Thought Content (Delusions): denies SI, HI Thought Content (Other): appears very paranoid (unable to sit during interview but frequently stands outside his bedroom door watching the milieu Thought Content (Aggressive): none reported Perception (Hallucinations): he denies AV hallucinations but he seems to be responding to internal stimuli Perception (Other): Please see above Cognition (Impairment of): executive function, he has thought blocking, he seems confused Cognition(Intelligence Est.): average Oriented: to place and person, not to date or time Insight: poor Judgment: poor Psychosis: he seems to be responding to internal stimuli DIAGNOSES: Paranoid schizophrenia unspecified depression alcohol use d/o 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 Appears to have thought blocking and is unable to answer questions logically, only gives very short responses most other than when asking to leave. Continues to refuse medication statin he doesn't need them and nothing wrong with him. but he has not been aggressive or inappropriate. He is not attending groups due to paranoia. His insight and judgement are very poor. Will continue to encourage treatment participation, daily showers, and medication compliance. MANAGEMENT PLAN: continue plan Medications: Invega 6 mgs PO QHS and 3 mgs PO QAM ativan 1mg q6hr prn anxiety/agitation haldol 5mg qq6hr prn psychosis/agitation TIME SPENT: 20 minutes. Vital Signs Vital Signs Date Time Temp Pulse Resp B/P (MAP) Pulse Ox O2 Delivery O2 Flow Rate FiO2 12/24/18 07:36 55 93/50 12/24/18 06:43 99.1 14 12/22/18 08:31 98 12/20/18 02:18 Room Air Current Medications Current Medications Medications (Trade) Dose Ordered Sig/Jean Claude Route PRN Reason Start Time Stop Time Status Last Admin Dose Admin Acetaminophen (Tylenol Tab) 650 mg Q6HP PRN PO HEADACHE or DISCOMFORT 12/20/18 03:00 Al Hydrox/Mg Hydrox/Simethicone (Mylanta) 30 ml Q4HP PRN PO HEARTBURN/INDIGESTION 12/20/18 03:00 Diphenhydramine HCl (Benadryl) 25 mg BIDP PRN PO EXTRAPYRAMIDAL SIDE EFFECTS 12/23/18 13:15 Folic Acid (Folic Acid) 1 mg DAILY PO 12/20/18 09:00 Haloperidol (Haldol) 5 mg Q6HP PRN PO anxiety/agitation 12/20/18 03:00 Home Med (Med Rec Complete!) ASDIRECTED XX 12/20/18 03:00 12/20/18 03:06 DC Lorazepam (Ativan) 2 mg ASDIRECTED PRN PO SEE PROTOCOL 12/20/18 03:00 Lorazepam (Ativan) 2 mg Q6HP PRN PO anxiety/agitation 12/20/18 03:00 Magnesium Hydroxide (Milk Of Magnesia) 30 ml DAILYPRN PRN PO CONSTIPATION 12/20/18 03:00 Multivitamins (Theragram-M) 1 tab DAILY PO 12/20/18 09:00 Nicotine (Nicoderm Cq 21mg) 1 patch DAILY TD 12/20/18 09:00 Paliperidone (Invega) 3 mg BID PO 12/21/18 21:00 12/23/18 13:04 DC Paliperidone (Invega) 3 mg QAM PO 12/24/18 09:00 Paliperidone (Invega) 6 mg QHS PO 12/23/18 21:00 Thiamine HCl (Thiamine HCl) 100 mg BID PO 12/20/18 09:00 12/23/18 08:59 DC Trazodone HCl (Desyrel) 50 mg QHSP PRN PO INSOMNIA 12/20/18 03:00 Allergies Coded Allergies: tramadol (Verified Allergy, Unknown, 12/19/18) JULIANA MEJIA DO Dec 24, 2018 9:19 am
[2018-12-24 18:09] VITALS: BP 118/74
[2018-12-24] MEDS: PALIPERIDONE 6 MG ER TAB (INVEGA) PO SCH (21:00)
[2018-12-25 06:45] VITALS: BP 93/50
[2018-12-25] MEDS: NICOTINE 21MG/24HR 1 EA TRANSDERMAL TD SCH (09:00)
[2018-12-25] MEDS: PALIPERIDONE 3 MG ER TAB (INVEGA) PO SCH (09:00)
--- NOTE | 2018-12-25 11:03 | MHIPNPDOC ---
[facility] Progress Note Progress Note DATE OF SERVICE: 12/25/18 HISTORY: Patient is a 33 -year-old , male, who was brought to the ER after PD found him shaking road signs while acting obviously intoxicated. During his confrontation with police Mr. Beaulieu commented that the police should just shoot him, that he wanted to go to sleep and never wake up, and that he had a history of depression. Per PD, Mr. Beaulieu repeatedly and purposely hit his head against the cruiser read window on the way to the hospital, causing a laceration on his forehead. Per ED, Mr. Beaulieu stated that he had only 1 beer but his BAL was found to be 0.198 at the hospital. Mr. Beaulieu has been admitted to [facility] before in 2018 for psychotic symptoms (AH/VH) + SI and was diagnosed with paranoid schizophrenia and depression unspecified. He also has a history of alcohol, opioid, and nicotine abuse. Mr. Beaulieu came into [facility] this morning after PD found him shaking street signs and states he's here b/c "I gashed my head open... I think I asked the rn clinical resource to shoot me" while intoxicated. He is anger that he has to be here. Mr. Beaulieu's denies that he wants to harm himself and would like to go home soon. Feels better after he's sobered up he states. He denies SI or HI. He is unable to say why he shook the street signs. Denies symptoms of depression. Denies alcohol withdrawal. Pt is cooperative on the unit and when seen. He denies hallucination, delusions. Feels safe here. VITAL SIGNS: See below. NEW TEST RESULTS: See below. CURRENT MEDICATIONS: See below. MENTAL STATUS EXAMINATION: General Appearance: unkempt, hospital scrubs/clothing, lacerations, healed scars Build: average Demeanor: average, mistrustful, withdrawn, very fidgety Eye Contact: average Activity: calm, psychomotor retardation Behavior: cooperative Speech: clear, not spontaneous, not fluent. Delayed responses Mood: "OK" Mood "I want to leave" Affect: constricted, flat, depressed Thought Process: Disorganized, slow, blocked Thought Content (Delusions): denies SI, HI Thought Content (Other): appears very paranoid (unable to sit during interview but frequently stands outside his bedroom door watching the milieu Thought Content (Aggressive): none reported Perception (Hallucinations): he denies AV hallucinations but he seems to be responding to internal stimuli Perception (Other): Please see above Cognition (Impairment of): executive function, he has thought blocking, he seems confused Cognition(Intelligence Est.): average Oriented: to place and person, not to date or time Insight: poor Judgment: poor Psychosis: he seems to be responding to internal stimuli DIAGNOSES: Paranoid schizophrenia unspecified depression alcohol use d/o 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 Has fresh clothes to change into after he showers. Asks if he showers "can I be discharged?" and told no as he also has to start taking his medication as he is psychiatrically not well and it would benefit his psychosis/paranoia. Advised pt that treatment team will have to facilitate TOO should he continue to refuse medication and explained to him what that means and denies that he believes he can be forced to take medication. Appears to continue to have thought blocking and is unable to answer questions logically, only gives very short responses most other than when asking to leave. Continues to refuse medication stating he doesn't need them and nothing's wrong with him. He has not been aggressive or inappropriate during his stay. He is not attending groups due to paranoia and continues to monitor the carr thru his door way daily out of paranoia. His insight and judgement are very poor. Will continue to encourage treatment participation, daily showers, and medication compliance. MANAGEMENT PLAN: continue plan Medications: Invega 6 mgs PO QHS and 3 mgs PO QAM ativan 1mg q6hr prn anxiety/agitation haldol 5mg qq6hr prn psychosis/agitation TIME SPENT: 20 minutes. Vital Signs Vital Signs Date Time Temp Pulse Resp B/P (MAP) Pulse Ox O2 Delivery O2 Flow Rate FiO2 12/25/18 06:45 97.7 50 12 93/50 (64) 12/22/18 08:31 98 12/20/18 02:18 Room Air Current Medications Current Medications Medications (Trade) Dose Ordered Sig/Jean Claude Route PRN Reason Start Time Stop Time Status Last Admin Dose Admin Acetaminophen (Tylenol Tab) 650 mg Q6HP PRN PO HEADACHE or DISCOMFORT 12/20/18 03:00 Al Hydrox/Mg Hydrox/Simethicone (Mylanta) 30 ml Q4HP PRN PO HEARTBURN/INDIGESTION 12/20/18 03:00 Diphenhydramine HCl (Benadryl) 25 mg BIDP PRN PO EXTRAPYRAMIDAL SIDE EFFECTS 12/23/18 13:15 Folic Acid (Folic Acid) 1 mg DAILY PO 12/20/18 09:00 12/24/18 11:09 DC Haloperidol (Haldol) 5 mg Q6HP PRN PO anxiety/agitation 12/20/18 03:00 Home Med (Med Rec Complete!) ASDIRECTED XX 12/20/18 03:00 12/20/18 03:06 DC Lorazepam (Ativan) 2 mg ASDIRECTED PRN PO SEE PROTOCOL 12/20/18 03:00 Cancel Lorazepam (Ativan) 2 mg Q6HP PRN PO anxiety/agitation 12/20/18 03:00 Magnesium Hydroxide (Milk Of Magnesia) 30 ml DAILYPRN PRN PO CONSTIPATION 12/20/18 03:00 Multivitamins (Theragram-M) 1 tab DAILY PO 12/20/18 09:00 12/24/18 11:09 DC Nicotine (Nicoderm Cq 21mg) 1 patch DAILY TD 12/20/18 09:00 Paliperidone (Invega) 3 mg BID PO 12/21/18 21:00 12/23/18 13:04 DC Paliperidone (Invega) 3 mg QAM PO 12/24/18 09:00 Paliperidone (Invega) 6 mg QHS PO 12/23/18 21:00 Thiamine HCl (Thiamine HCl) 100 mg BID PO 12/20/18 09:00 12/23/18 08:59 DC Trazodone HCl (Desyrel) 50 mg QHSP PRN PO INSOMNIA 12/20/18 03:00 Allergies Coded Allergies: tramadol (Verified Allergy, Unknown, 12/19/18) JULIANA MEJIA DO Dec 25, 2018 11:03 am
[2018-12-25 17:51] VITALS: BP 115/71
[2018-12-25 18:00] VITALS: BP 115/71
[2018-12-25] MEDS: PALIPERIDONE 6 MG ER TAB (INVEGA) PO SCH (21:00)
[2018-12-26 06:49] VITALS: BP 105/58
[2018-12-26] MEDS: PALIPERIDONE 3 MG ER TAB (INVEGA) PO SCH (08:54)
[2018-12-26] MEDS: NICOTINE 21MG/24HR 1 EA TRANSDERMAL TD SCH (08:54)
--- NOTE | 2018-12-26 10:56 | MHIPNPDOC ---
[facility] Progress Note Progress Note DATE OF SERVICE: 12/26/18 HISTORY: Patient is a 33 -year-old , male, who was brought to the ER after PD found him shaking road signs while acting obviously intoxicated. During his confrontation with police Mr. Beaulieu commented that the police should just shoot him, that he wanted to go to sleep and never wake up, and that he had a history of depression. Per PD, Mr. Beaulieu repeatedly and purposely hit his head against the cruiser read window on the way to the hospital, causing a laceration on his forehead. Per ED, Mr. Beaulieu stated that he had only 1 beer but his BAL was found to be 0.198 at the hospital. Mr. Beaulieu has been admitted to [facility] before in 2018 for psychotic symptoms (AH/VH) + SI and was diagnosed with paranoid schizophrenia and depression unspecified. He also has a history of alcohol, opioid, and nicotine abuse. Mr. Beaulieu came into [facility] this morning after PD found him shaking street signs and states he's here b/c "I gashed my head open... I think I asked the associate professor of library media to shoot me" while intoxicated. He is anger that he has to be here. Mr. Beaulieu's denies that he wants to harm himself and would like to go home soon. Feels better after he's sobered up he states. He denies SI or HI. He is unable to say why he shook the street signs. Denies symptoms of depression. Denies alcohol withdrawal. Pt is cooperative on the unit and when seen. He denies hallucination, delusions. Feels safe here. VITAL SIGNS: See below. NEW TEST RESULTS: See below. CURRENT MEDICATIONS: See below. MENTAL STATUS EXAMINATION: General Appearance: unkempt, hospital scrubs/clothing, lacerations, healed scars Build: average Demeanor: average, mistrustful, withdrawn, very fidgety Eye Contact: average Activity: calm, psychomotor retardation Behavior: cooperative Speech: clear, not spontaneous, not fluent. Delayed responses Mood: "OK" Mood "I want to leave" Affect: constricted, flat, depressed Thought Process: Disorganized, slow, blocked Thought Content (Delusions): denies SI, HI Thought Content (Other): appears very paranoid (unable to sit during interview but frequently stands outside his bedroom door watching the milieu Thought Content (Aggressive): none reported Perception (Hallucinations): he denies AV hallucinations but he seems to be responding to internal stimuli Perception (Other): Please see above Cognition (Impairment of): executive function, he has thought blocking, he seems confused Cognition(Intelligence Est.): average Oriented: to place and person, not to date or time Insight: poor Judgment: poor Psychosis: he seems to be responding to internal stimuli DIAGNOSES: Paranoid schizophrenia unspecified depression alcohol use d/o 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 Very preoccupied, responding the internal stimuli, very paranoid, only interested in d/c. States when seen he's ok and wants to know when he can leave even though advised day that he is not capable of d/c as he is psychotic, not taking med, not eating, etc. Believes nothing is wrong with him and he doesn't need treatment or to be here. Due to pt resistance to any treatment and failure to participate in his own self care will have to proceed to TOO. He has not been aggressive or inappropriate during his stay. He is not attending groups due to paranoia and continues to monitor the carr thru his door way daily out of paranoia with no change. His insight and judgement are very poor. Will continue to encourage treatment participat ion, daily showers, and medication compliance. MANAGEMENT PLAN: continue plan, TOO completion Medications: Invega 6 mgs PO QHS and 3 mgs PO QAM ativan 1mg q6hr prn anxiety/agitation haldol 5mg qq6hr prn psychosis/agitation TIME SPENT: 20 minutes. Vital Signs Vital Signs Date Time Temp Pulse Resp B/P (MAP) Pulse Ox O2 Delivery O2 Flow Rate FiO2 12/26/18 08:11 Room Air 12/26/18 06:49 98.1 54 17 105/58 (74) 12/22/18 08:31 98 Current Medications Current Medications Medications (Trade) Dose Ordered Sig/Jean Claude Route PRN Reason Start Time Stop Time Status Last Admin Dose Admin Acetaminophen (Tylenol Tab) 650 mg Q6HP PRN PO HEADACHE or DISCOMFORT 8/8/19 03:00 Al Hydrox/Mg Hydrox/Simethicone (Mylanta) 30 ml Q4HP PRN PO HEARTBURN/INDIGESTION 12/20/18 03:00 Diphenhydramine HCl (Benadryl) 25 mg BIDP PRN PO EXTRAPYRAMIDAL SIDE EFFECTS 12/23/18 13:15 Folic Acid (Folic Acid) 1 mg DAILY PO 12/20/18 09:00 12/24/18 11:09 DC Haloperidol (Haldol) 5 mg Q6HP PRN PO anxiety/agitation 12/20/18 03:00 Home Med (Med Rec Complete!) ASDIRECTED XX 12/20/18 03:00 12/20/18 03:06 DC Lorazepam (Ativan) 2 mg ASDIRECTED PRN PO SEE PROTOCOL 12/20/18 03:00 Cancel Lorazepam (Ativan) 2 mg Q6HP PRN PO anxiety/agitation 12/20/18 03:00 Magnesium Hydroxide (Milk Of Magnesia) 30 ml DAILYPRN PRN PO CONSTIPATION 12/20/18 03:00 Miscellaneous (Unresolved Clarification Entry) SEE LABEL COMMENTS DAILY XX 12/26/18 09:00 12/26/18 10:43 DC Multivitamins (Theragram-M) 1 tab DAILY PO 12/20/18 09:00 12/24/18 11:09 DC Nicotine (Nicoderm Cq 21mg) 1 patch DAILY TD 12/20/18 09:00 Paliperidone (Invega) 3 mg BID PO 12/21/18 21:00 12/23/18 13:04 DC Paliperidone (Invega) 3 mg QAM PO 12/24/18 09:00 Paliperidone (Invega) 6 mg QHS PO 12/23/18 21:00 Thiamine HCl (Thiamine HCl) 100 mg BID PO 12/20/18 09:00 12/23/18 08:59 DC Trazodone HCl (Desyrel) 50 mg QHSP PRN PO INSOMNIA 12/20/18 03:00 Allergies Coded Allergies: tramadol (Verified Allergy, Unknown, 12/19/18) JULIANA MEJIA DO Dec 26, 2018 10:56 am
--- NOTE | 2018-12-26 11:37 | IPNPDOC ---
Text Note Date of Service The patient was seen on 12/26/18. NOTE Christofer Ortez is a 33 year old male, PMH sig. for depression, alcohol abuse, brought to the ED on account of erratic behavior. Subjective: request for staple removal Physical Examination GENERAL: NAD SKIN : Warm, frontal scalp laceration with staple repair. HEENT: 3 frontal beth, normocephalic, PERRL, moist mucous membrane CARDIOVASCULAR: Regular rate and rhythm, S1S2, no JVD, no edema, distal pulses + palpable RESP: CTAB, no accessory muscle use noted ABDOMEN: BS+ non distended non tender MS: no joint deformities NEURO: Alert and oriented to self and place, CN2-12 grossly intact PSYCH: no anxiety or agitation, appropriate mood and affect. Assessment/Plan Headache -resolved Head laceration -repaired laceration was cleaned with betadine and 3 beth were removed -patient tolerated well VS,Fishbone, I+O VS, Fishbone, I+O Vital Signs Date Time Temp Pulse Resp B/P (MAP) Pulse Ox O2 Delivery O2 Flow Rate FiO2 12/26/18 08:11 Room Air 12/26/18 06:49 98.1 54 17 105/58 (74) 12/22/18 08:31 98 MITCHELL SHEAP Dec 26, 2018 11:37
[2018-12-26 12:41] LABS: ALT/SGPT 22 U/L (12-78); BILIRUBIN,TOTAL 0.8 MG/DL (0.2-1.0); BLOOD UREA NITROGEN 9 MG/DL (7-18); CALCIUM LEVEL 9.2 MG/DL (8.5-10.1); CARBON DIOXIDE LEVEL 30 MEQ/L (21-32); CHLORIDE LEVEL 103 MEQ/L (98-107); CREATININE FOR GFR 1.11 MG/DL (0.70-1.30); GLOMERULAR FILTRATION RATE > 60.0 (>60); GLUCOSE, FASTING 80 MG/DL (70-100); MAGNESIUM LEVEL 2.3 MG/DL (1.8-2.4); PHOSPHORUS LEVEL 2.9 MG/DL (2.5-4.9); POTASSIUM SERUM 4.3 MEQ/L (3.5-5.1); SODIUM LEVEL 140 MEQ/L (136-145); TOTAL PROTEIN 6.9 GM/DL (6.4-8.2)
[2018-12-26 18:00] VITALS: BP 110/67
[2018-12-26] MEDS: PALIPERIDONE 6 MG ER TAB (INVEGA) PO SCH (21:00)
[2018-12-27 06:43] VITALS: BP 100/61
[2018-12-27] MEDS: NICOTINE 21MG/24HR 1 EA TRANSDERMAL TD SCH (09:00)
[2018-12-27] MEDS: PALIPERIDONE 3 MG ER TAB (INVEGA) PO SCH (09:00)
--- NOTE | 2018-12-27 09:19 | MHIPNPDOC ---
[facility] Progress Note Progress Note DATE OF SERVICE: 12/27/18 HISTORY: Patient is a 33 -year-old , male, who was brought to the ER after PD found him shaking road signs while acting obviously intoxicated. During his confrontation with police Mr. Beaulieu commented that the police should just shoot him, that he wanted to go to sleep and never wake up, and that he had a history of depression. Per PD, Mr. Beaulieu repeatedly and purposely hit his head against the cruiser read window on the way to the hospital, causing a laceration on his forehead. Per ED, Mr. Beaulieu stated that he had only 1 beer but his BAL was found to be 0.198 at the hospital. Mr. Beaulieu has been admitted to [facility] before in 2018 for psychotic symptoms (AH/VH) + SI and was diagnosed with paranoid schizophrenia and depression unspecified. He also has a history of alcohol, opioid, and nicotine abuse. Mr. Beaulieu came into [facility] this morning after PD found him shaking street signs and states he's here b/c "I gashed my head open... I think I asked the training instructor to shoot me" while intoxicated. He is anger that he has to be here. Mr. Beaulieu's denies that he wants to harm himself and would like to go home soon. Feels better after he's sobered up he states. He denies SI or HI. He is unable to say why he shook the street signs. Denies symptoms of depression. Denies alcohol withdrawal. Pt is cooperative on the unit and when seen. He denies hallucination, delusions. Feels safe here. VITAL SIGNS: See below. NEW TEST RESULTS: cmp, mag, phos all wnl CURRENT MEDICATIONS: See below. MENTAL STATUS EXAMINATION: General Appearance: unkempt, hospital scrubs/clothing, lacerations, healed scars Build: average Demeanor: average, mistrustful, withdrawn, very fidgety Eye Contact: average Activity: calm, psychomotor retardation Behavior: cooperative Speech: clear, not spontaneous, not fluent. Delayed, limited responses Mood: "OK" Mood "I'm fine" Affect: constricted, flat, depressed Thought Process: Disorganized, slow, blocked Thought Content (Delusions): denies SI, HI Thought Content (Other): appears very paranoid (unable to sit during interview but frequently stands in his bedroom door watching the milieu Thought Content (Aggressive): none reported Perception (Hallucinations): he denies AV hallucinations but he seems to be responding to internal stimuli severely Perception (Other): Please see above Cognition (Impairment of): executive function, he has thought blocking, he seems confused Cognition(Intelligence Est.): average Oriented: to place and person, not to date or time Insight: poor Judgment: poor Psychosis: he seems to be responding to internal stimuli DIAGNOSES: Paranoid schizophrenia unspecified depression alcohol use d/o 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 No change since yesterday as continues to be very preoccupied, responding the internal stimuli, very paranoid, only interested in d/c. States each day when seen he's ok and wants to know when he can leave even though advised daily that he is not capable of d/c as he is psychotic, not taking med, not eating, etc. Believes nothing is wrong with him and he doesn't need treatment or to be here. Due to pt resistance to any treatment and failure to participate in his own self care will have to proceed to TOO. He has not been aggressive or inappropriate during his stay. He is not attending groups due to paranoia and continues to monitor the carr thru his door way daily out of paranoia with no change and does not leave his room of pascual socialize with anyone. His insight and judgement are very poor. Will continue to encourage treatment participation, daily showers, eating and drinking, and medication compliance. MANAGEMENT PLAN: continue plan, TOO completion Medications: Invega 6 mgs PO QHS and 3 mgs PO QAM ativan 1mg q6hr prn anxiety/agitation haldol 5mg qq6hr prn psychosis/agitation TIME SPENT: 30 minutes. Vital Signs Vital Signs Date Time Temp Pulse Resp B/P (MAP) Pulse Ox O2 Delivery O2 Flow Rate FiO2 12/27/18 06:43 98.8 54 12 100/61 (74) 12/26/18 08:11 Room Air 12/22/18 08:31 98 Laboratory Data 24H Labs Laboratory Tests 2 12/26/18 11:10: Anion Gap 7L, Glomerular Filtration Rate > 60.0, Blood Urea Nitrogen 9, Creatinine 1.11, Sodium Level 140, Potassium Level 4.3, Chloride Level 103, Carbon Dioxide Level 30, Calcium Level 9.2, Phosphorus Level 2.9, Aspartate Amino Transf (AST/SGOT) 17, Alanine Aminotransferase (ALT/SGPT) 22, Alkaline P hosphatase 79, Total Bilirubin 0.8, Total Protein 6.9, Albumin 4.0, Magnesium Level 2.3, Albumin/Globulin Ratio 1.38 CBC/BMP Laboratory Tests 12/26/18 11:10 Calcium Level 9.2, Phosphorus Level 2.9, Aspartate Amino Transf (AST/SGOT) 17, Alanine Aminotransferase (ALT/SGPT) 22, Alkaline Phosphatase 79, Total Bilirubin 0.8, Total Protein 6.9, Albumin 4.0 Current Medications Current Medications Medications (Trade) Dose Ordered Sig/Jean Claude Route PRN Reason Start Time Stop Time Status Last Admin Dose Admin Acetaminophen (Tylenol Tab) 650 mg Q6HP PRN PO HEADACHE or DISCOMFORT 12/20/18 03:00 Al Hydrox/Mg Hydrox/Simethicone (Mylanta) 30 ml Q4HP PRN PO HEARTBURN/INDIGESTION 12/20/18 03:00 Diphenhydramine HCl (Benadryl) 25 mg BIDP PRN PO EXTRAPYRAMIDAL SIDE EFFECTS 12/23/18 13:15 Folic Acid (Folic Acid) 1 mg DAILY PO 12/20/18 09:00 12/24/18 11:09 DC Haloperidol (Haldol) 5 mg Q6HP PRN PO anxiety/agitation 12/20/18 03:00 Home Med (Med Rec Complete!) ASDIRECTED XX 12/20/18 03:00 12/20/18 03:06 DC Lorazepam (Ativan) 2 mg ASDIRECTED PRN PO SEE PROTOCOL 12/20/18 03:00 Cancel Lorazepam (Ativan) 2 mg Q6HP PRN PO anxiety/agitation 12/20/18 03:00 Magnesium Hydroxide (Milk Of Magnesia) 30 ml DAILYPRN PRN PO CONSTIPATION 12/20/18 03:00 Miscellaneous (Unresolved Clarification Entry) SEE LABEL COMMENTS DAILY XX 12/26/18 09:00 12/26/18 10:43 DC Multivitamins (Theragram-M) 1 tab DAILY PO 12/20/18 09:00 12/24/18 11:09 DC Nicotine (Nicoderm Cq 21mg) 1 patch DAILY TD 12/20/18 09:00 Paliperidone (Invega) 3 mg BID PO 12/21/18 21:00 12/23/18 13:04 DC Paliperidone (Invega) 3 mg QAM PO 12/24/18 09:00 Paliperidone (Invega) 6 mg QHS PO 12/23/18 21:00 Thiamine HCl (Thiamine HCl) 100 mg BID PO 12/20/18 09:00 12/23/18 08:59 DC Trazodone HCl (Desyrel) 50 mg QHSP PRN PO INSOMNIA 12/20/18 03:00 Allergies Coded Allergies: tramadol (Verified Allergy, Unknown, 12/19/18) JULIANA MEJIA DO Dec 27, 2018 9:19 am
--- NOTE | 2018-12-27 11:23 | IPNPDOC ---
Text Note Date of Service The patient was seen on 12/27/18. NOTE Head Laceration Check Laceration healing with no complications from staple removal yesterday. denies headache VS,Fishbone, I+O VS, Fishbone, I+O Vital Signs Date Time Temp Pulse Resp B/P (MAP) Pulse Ox O2 Delivery O2 Flow Rate FiO2 12/27/18 06:43 98.8 54 12 100/61 (74) 12/26/18 08:11 Room Air 12/22/18 08:31 98 MITCHELL SHEA Dec 27, 2018 11:23
--- NOTE | 2018-12-27 11:27 | MHIPNPDOC ---
[facility] Progress Note Progress Note DATE OF SERVICE: 12/27/18 ADMIT DATE: 12/19/18 TREATMENT OVER OBJECTION DATE OF SERVICE: 12/27/18 ATTENDING DOCTOR: Norma Wyman DO FAMILY CONTACTS: none (pt will not consent) SECTION I: CLINICAL SUMMARY: Patient is a 33 -year-old , male, who was brought to the ER after PD found him shaking road signs while acting obviously intoxicated. During his confrontation with police Mr. Beaulieu commented that the police should just shoot him, that he wanted to go to sleep and never wake up, and that he had a history of depression. Per PD, Mr. Beaulieu repeatedly and purposely hit his head against the cruiser read window on the way to the hospital, causing a laceration on his forehead. Per ED, Mr. Beaulieu stated that he had only 1 beer but his BAL was found to be 0.198 at the hospital. Mr. Beaulieu has been admitted to [facility] before in 2018 for psychotic symptoms (AH/VH) + SI and was diagnosed with paranoid schizophrenia and depression unspecified. He also has a history of alcohol, opioid, and nicotine abuse. ASSESSMENT ON 12/27/18: Pt continues to be psychotic, refusing to shower (paranoid), eat anything (would not eat his chicken nuggets for lunch even after I opened it for him and just asked him to have at least one, only drinking 1/2 bottle cold liana micki daily), brush teeth, take any medications, leave his room. No change since yesterday as continues to be very preoccupied, responding the internal stimuli, very paranoid, only interested in d/c. States each day when seen he's ok and wants to know when he can leave even though advised daily that he is not capable of d/c as he is psychotic, not taking med, not eating, etc. Believes nothing is wrong with him and he doesn't need treatment or to be here. Due to pt resistance to any treatment and failure to participate in his own self care will have to proceed to TOO. He has not been aggressive or inappropriate during his stay. He is not attending groups due to paranoia and continues to monitor the carr thru his door way daily out of paranoia with no change and does not leave his room of pascual socialize with anyone. His insight and judgement are very poor. Will continue to encourage treatment participation, daily showers, eating and drinking, and medication compliance. DIAGNOSIS: Paranoid schizophrenia alcohol use disorder SECTION II: Proposed Treatment. 1. Course of treatment recommended by treating physician: To prescribe either an antipsychotic or mood stabilizer or both, such as the following: - Invega 3 mg in am and 6mg qhs with the option of increasing this dose progressively up to 6 or 9 mg twice a day as tolerated for signs and symptoms of psychosis. Initiate Invega Sustenna 234mg loading dose IM injection and then, pending medication tolerance, Invega Sustenna 156mg maintenance dose IM injection for medication compliance 3 days later. If the patient refuses treatment by mouth, the patient should receive Haldol IM 10 mg at various doses up to a total of 30 mg per day. The patient will then be maintained on Invega Sustenna monthly injection with doses up to 234 mg IM every month once she is discharged - Cogentin 0.5 to 1mg daily up to a total of 4 mg per day in divided doses if Parkinsonian symptoms are evident. 2. Reasonable alternatives if any are:Thorazine 50-100mg IM, Zyprexa 5-20mg IM and Ativan 2mg IM in the event patient becomes a danger to herself or others during her treatment. The patient requires an antipsychotic medication for the treatment of his psychotic disorder. 3. Has the patient been tried on the proposed treatment: The patient has been on trials of Invega, Invega Sustenna, Haldol, Zyprexa in the past with good effi cacy and tolerability. 4. Anticipated benefits to proposed treatment: The proposed treatment regimen will be effective for paranoid schizophrenia making her able to be relatively independent in the community and not require inpatient psychiatric hospitalization. 5. Reasonable foreseeable adverse side effects: Parkinsonian symptoms, weight gain, sedation, side effects of neuroleptics. In rare cases, neuroleptic malignant syndrome and tardive dyskinesia may develop. However, the treatment team believes that the benefit outweighs any risk. 6. Prognosis without treatment: The patient without any appropriate antipsychotic medication will remain chronically paranoia, unable to participate in daily health needs including eating and bathing, and psychotic and unable to function independently in the community and will require custodial psychiatric The patient is at risk of being a danger to himself or others due to lack of insight and judgment, inability to participate in his own self care, and severe paranoia. The patient will not be able to take care of any of his physical or mental health needs. SECTION III: Patient's capacity. 1. Explained to the patient: A. Condition: Yes. B. Proposed treatment: Yes. C. Anticipated benefits of treatment: Yes. D. Risks of adverse side effects of treatment: Yes. E. Availability of other treatments and comparison of benefits and risks: Yes. F. Risk of no treatment: Yes. The patient is offered the opportunity to review various options, but does not take advantage of this opportunity. The patient appears to be delusional, paranoid, and psychotic. He continues to exhibit paranoid, suspicious behavior and is responding to internal stimuli (AH) on the inpatient psychiatric unit. 2. State the nature of the patient's objections to treatment: The patient remains paranoid, psychotic, poor insight into mental illness and denies he suffer from any mental illness and is fine, just needs to leave. will not leave his room and watches milieu from bed room door daily, not eating and drinking only 1/2 cup liquid daily, not showering/brushing teeth, refusing all medication secondary to psychotic symptoms thru out his hospitalization. 3. The patient's capacity: In my opinion, the patient lacks the capacity to make any important decisions on his treatment at this time. The patient lacks insight into the nature and severity of his illness, his need for treatment and his prognosis. SECTION IV: LIKELIHOOD FOR DANGEROUS BEHAVIOR: 1. The patient is believed to be dangerous to others at the hospital unless treated: Yes. The patient is quite psychotic with poor insight and judgment with the capacity of becoming physically aggressive towards others secondary severe paranoia. 2. Is the patient believed to be likely dangerous to self if not treated: Yes. The patient's paranoia, lack of participating in daily life needs, and psychosis makes him unable to provide for himself both physically and mentally. The patient may also potentially engage in physically aggressive behavior towards others secondary severe paranoia which puts the patient at risk of being harmed. SECTION V: ANY OTHER INFORMATION: The patient's clinical presentation and behavior on the unit supports treatment over objection, both for his safety as well as the safety of others in the community. Vital Signs Vital Signs Date Time Temp Pulse Resp B/P (MAP) Pulse Ox O2 Delivery O2 Flow Rate FiO2 12/27/18 06:43 98.8 54 12 100/61 (74) 12/26/18 08:11 Room Air 12/22/18 08:31 98 Laboratory Data 24H Labs Laboratory Tests 2 12/26/18 11:10: Anion Gap 7L, Glomerular Filtration Rate > 60.0, Blood Urea Nitrogen 9, Creatinine 1.11, Sodium Level 140, Potassium Level 4.3, Chloride Level 103, Carbon Dioxide Level 30, Calcium Level 9.2, Phosphorus Level 2.9, Aspartate Am arjesh Transf (AST/SGOT) 17, Alanine Aminotransferase (ALT/SGPT) 22, Alkaline Phosphatase 79, Total Bilirubin 0.8, Total Protein 6.9, Albumin 4.0, Magnesium Level 2.3, Albumin/Globulin Ratio 1.38 CBC/BMP Laboratory Tests 12/26/18 11:10 Calcium Level 9.2, Phosphorus Level 2.9, Aspartate Amino Transf (AST/SGOT) 17, Alanine Aminotransferase (ALT/SGPT) 22, Alkaline Phosphatase 79, Total Bilirubin 0.8, Total Protein 6.9, Albumin 4.0 Current Medications Current Medications Medications (Trade) Dose Ordered Sig/Jean Claude Route PRN Reason Start Time Stop Time Status Last Admin Dose Admin Acetaminophen (Tylenol Tab) 650 mg Q6HP PRN PO HEADACHE or DISCOMFORT 12/20/18 03:00 Al Hydrox/Mg Hydrox/Simethicone (Mylanta) 30 ml Q4HP PRN PO HEARTBURN/INDIGESTION 12/20/18 03:00 Diphenhydramine HCl (Benadryl) 25 mg BIDP PRN PO EXTRAPYRAMIDAL SIDE EFFECTS 12/23/18 13:15 Folic Acid (Folic Acid) 1 mg DAILY PO 12/20/18 09:00 12/24/18 11:09 DC Haloperidol (Haldol) 5 mg Q6HP PRN PO anxiety/agitation 12/20/18 03:00 Home Med (Med Rec Complete!) ASDIRECTED XX 12/20/18 03:00 12/20/18 03:06 DC Lorazepam (Ativan) 2 mg ASDIRECTED PRN PO SEE PROTOCOL 12/20/18 03:00 Cancel Lorazepam (Ativan) 2 mg Q6HP PRN PO anxiety/agitation 12/20/18 03:00 Magnesium Hydroxide (Milk Of Magnesia) 30 ml DAILYPRN PRN PO CONSTIPATION 12/20/18 03:00 Miscellaneous (Unresolved Clarification Entry) SEE LABEL COMMENTS DAILY XX 12/26/18 09:00 12/26/18 10:43 DC Multivitamins (Theragram-M) 1 tab DAILY PO 12/20/18 09:00 12/24/18 11:09 DC Nicotine (Nicoderm Cq 21mg) 1 patch DAILY TD 12/20/18 09:00 Paliperidone (Invega) 3 mg BID PO 12/21/18 21:00 12/23/18 13:04 DC Paliperidone (Invega) 3 mg QAM PO 12/24/18 09:00 Paliperidone (Invega) 6 mg QHS PO 12/23/18 21:00 Thiamine HCl (Thiamine HCl) 100 mg BID PO 12/20/18 09:00 12/23/18 08:59 DC Trazodone HCl (Desyrel) 50 mg QHSP PRN PO INSOMNIA 12/20/18 03:00 Allergies Coded Allergies: tramadol (Verified Allergy, Unknown, 12/19/18) NORMA WYMAN DO Dec 27, 2018 11:27 am
[2018-12-27] MEDS ORDERED: PALIPERIDONE 3 MG ER TAB (INVEGA) PO ONE (12:45)
[2018-12-27 18:00] VITALS: BP 121/68
[2018-12-27] MEDS: PALIPERIDONE 6 MG ER TAB (INVEGA) PO SCH (21:40)
[2018-12-28 06:09] VITALS: BP 125/58
[2018-12-28] MEDS: PALIPERIDONE 3 MG ER TAB (INVEGA) PO SCH (08:59)
[2018-12-28] MEDS: NICOTINE 21MG/24HR 1 EA TRANSDERMAL TD SCH (09:00)
--- NOTE | 2018-12-28 11:59 | MHIPNPDOC ---
[facility] Progress Note Progress Note DATE OF SERVICE: 12/28/18 HISTORY: . VITAL SIGNS: See below. NEW TEST RESULTS: . CURRENT MEDICATIONS: See below. MENTAL STATUS EXAMINATION: Patient is a -year old male, who is . Speech: Is . Language skills are . Thought processes including: . Thought content: . Abstract reasoning, and computation: . Description of associ ations: . Description of abnormal or psychotic thoughts: . Judgment: . Insight: [very limited, good, fair. poor]. Orientation: . Recent and remote memory: . Attention span and concentration: . Language: . Fund of knowledge: . Mood: . Affect: . DIAGNOSES: 1. . 2. . 3. . ASSESSMENT: MANAGEMENT PLAN: . TIME SPENT: minutes. Vital Signs Vital Signs Date Time Temp Pulse Resp B/P (MAP) Pulse Ox O2 Delivery O2 Flow Rate FiO2 12/28/18 06:09 97.6 68 18 125/58 (80) 12/26/18 08:11 Room Air 12/22/18 08:31 98 Current Medications Current Medications Medications (Trade) Dose Ordered Sig/Jean Claude Route PRN Reason Start Time Stop Time Status Last Admin Dose Admin Acetaminophen (Tylenol Tab) 650 mg Q6HP PRN PO HEADACHE or DISCOMFORT 12/20/18 03:00 Al Hydrox/Mg Hydrox/Simethicone (Mylanta) 30 ml Q4HP PRN PO HEARTBURN/INDIGESTION 12/20/18 03:00 Diphenhydramine HCl (Benadryl) 25 mg BIDP PRN PO EXTRAPYRAMIDAL SIDE EFFECTS 12/23/18 13:15 Folic Acid (Folic Acid) 1 mg DAILY PO 12/20/18 09:00 12/24/18 11:09 DC Haloperidol (Haldol) 5 mg Q6HP PRN PO anxiety/agitation 12/20/18 03:00 Home Med (Med Rec Complete!) ASDIRECTED XX 12/20/18 03:00 12/20/18 03:06 DC Lorazepam (Ativan) 2 mg ASDIRECTED PRN PO SEE PROTOCOL 12/20/18 03:00 Cancel Lorazepam (Ativan) 2 mg Q6HP PRN PO anxiety/agitation 12/20/18 03:00 Magnesium Hydroxide (Milk Of Magnesia) 30 ml DAILYPRN PRN PO CONSTIPATION 12/20/18 03:00 Miscellaneous (Unresolved Clarification Entry) SEE LABEL COMMENTS DAILY XX 12/26/18 09:00 12/26/18 10:43 DC Multivitamins (Theragram-M) 1 tab DAILY PO 12/20/18 09:00 12/24/18 11:09 DC Nicotine (Nicoderm Cq 21mg) 1 patch DAILY TD 12/20/18 09:00 Paliperidone (Invega) 3 mg BID PO 12/21/18 21:00 12/23/18 13:04 DC Paliperidone (Invega) 3 mg QAM PO 12/24/18 09:00 Paliperidone (Invega) 6 mg QHS PO 12/23/18 21:00 12/27/18 21:40 Thiamine HCl (Thiamine HCl) 100 mg BID PO 12/20/18 09:00 12/23/18 08:59 DC Trazodone HCl (Desyrel) 50 mg QHSP PRN PO INSOMNIA 12/20/18 03:00 Allergies Coded Allergies: tramadol (Verified Allergy, Unknown, 12/19/18) CHAPO PARKER DO Dec 28, 2018 11:59
[2018-12-28 18:11] VITALS: BP 97/58
[2018-12-28] MEDS: PALIPERIDONE 6 MG ER TAB (INVEGA) PO SCH (20:04)
--- NOTE | 2018-12-29 06:57 | MHIPN ---
DATE: 12/28/2018 VITAL SIGNS: Temperature 97.6, pulse 68, respirations 18, blood pressure 125/58. CURRENT MEDICATION: Invega 3 mg every a.m., 6 mg at bedtime. HISTORY OF PRESENT ILLNESS: This is a 33-year-old single male living by himself with history of schizophrenia paranoid type. The patient was intoxicated and acting bizarrely and he was brought into the emergency room. He wanted the police to shoot him at the time. The patient himself minimizes all signs and symptoms. He denies having any problems of any kind. He has been refusing psychotropics, claiming that he is not mentally ill. However, he did take a dose of Invega last night. However, he refused to take the morning Invega dosage unfortunately. Staff are considering a treatment over objection legal status. The patient has been in reasonably good behavioral control on the unit with no outbursts. He denies any psychotic symptoms, the patient has appeared paranoid to staff. The patient isolates in his room with little social interaction. MENTAL STATUS EXAMINATION: The patient is alert and oriented. He is not cooperative. No signs of depression. The patient does appear paranoid. He denies auditory hallucinations, but is likely covering. Insight is poor. Judgment is poor. Grooming and hygiene are fair. The patient appears to be internally preoccupied. No signs of cognitive deficit. DIAGNOSES: Schizophrenia, paranoid type. Alcohol use disorder. PLAN: Continue use of Invega antipsychotic medication. Encourage medication compliance. Encourage milieu therapy involvement.
[2018-12-29 07:03] VITALS: BP 115/71
[2018-12-29] MEDS: PALIPERIDONE 3 MG ER TAB (INVEGA) PO SCH ×2 (09:00→20:34)
[2018-12-29] MEDS: NICOTINE 21MG/24HR 1 EA TRANSDERMAL TD SCH (09:00)
[2018-12-29 18:02] VITALS: BP 116/69
[2018-12-30 06:55] VITALS: BP 90/53
[2018-12-30] MEDS: NICOTINE 21MG/24HR 1 EA TRANSDERMAL TD SCH (08:47)
[2018-12-30 18:41] VITALS: BP 109/64
[2018-12-30] MEDS: PALIPERIDONE 3 MG ER TAB (INVEGA) PO SCH (20:04)
[2018-12-31 06:38] VITALS: BP 97/52
[2018-12-31] MEDS: NICOTINE 21MG/24HR 1 EA TRANSDERMAL TD SCH (09:00)
[2018-12-31 15:57] VITALS: BP 118/80
[2018-12-31] MEDS ORDERED: PALIPERIDONE PALMITATE 234MG/1.5ML INJ (INVEGA)(J2426)(FREE PSY INPT ONLY) IM ONE (17:00)
[2018-12-31] MEDS: PALIPERIDONE 3 MG ER TAB (INVEGA) PO SCH (20:10)
--- NOTE | 2018-12-31 22:04 | MHIPN ---
DATE: 12/31/2018 VITAL SIGNS: Temperature 97.3, pulse 64, respirations 12, blood pressure 97/52. CURRENT MEDICATIONS: - paliperidone 9 mg nightly HISTORY OF PRESENT ILLNESS: Patient states he has more energy, he feels more active on the unit. He states his mood is better. He claims he is out of bed now and starting to attend activities and groups. He states his appetite is improved, he is sleeping better. He denies craving alcohol. He has been medication compliant with the Invega. We discussed the long-acting monthly injection of Invega, he is resistant, he is not able to explain why. His marketing data specialist is trying to find him housing. The housing staff are recommending intramuscular (IM) medication given his history of poor medication compliance. Patient trashed his last apartment while psychotic. MENTAL STATUS EXAMINATION: Patient is alert and oriented and more cooperative today. He is not currently depressed. He still reports some paranoia but denies hearing voices. Insight and judgment are fair. Grooming and hygiene seem improved. He is more verbal though still somewhat guarded. No signs of organicity. No signs of impulsivity or dangerousness. DIAGNOSES: 1. Schizophrenia, paranoid type. 2. Alcohol use disorder. PLAN: Continue present management. Encourage use of monthly injection.
[2019-01-01 06:43] VITALS: BP 119/81
[2019-01-01 08:42] VITALS: BP 119/81
[2019-01-01] MEDS: NICOTINE 21MG/24HR 1 EA TRANSDERMAL TD SCH (09:00)
[2019-01-01 16:43] VITALS: BP 121/78
--- NOTE | 2019-01-01 20:05 | MHIPN ---
DATE: 01/01/2019 VITAL SIGNS: Temperature 98.0, pulse 74, respirations 12, blood pressure 119/81. CURRENT MEDICATIONS: - paliperidone 9 mg at bedtime - Invega Sustenna 234 mg intramuscular (IM) given yesterday HISTORY OF PRESENT ILLNESS: The patient did cooperate with the monthly injection last night. It was well-tolerated. He has been compliant with oral Invega as well. The patient is starting to attend groups. Discharge planning staff have been in touch with his outpatient rifle case repairer. Housing has still been problematic. MENTAL STATUS EXAMINATION: The patient is alert and oriented. Eye contact is improved. He denies current depression. Paranoia is less prominent. The patient denies hearing voices. Insight and judgment seem somewhat improved. Grooming and hygiene are fair. He does have body odor. The patient remains guarded. No current signs of dangerousness. DIAGNOSES: 1. Schizophrenia, paranoid type. 2. Alcohol use disorder. PLAN: Continue present management. Staff to work on discharge planning. The patient is due for another injection of Invega Sustenna later in the week.
[2019-01-01] MEDS: PALIPERIDONE 3 MG ER TAB (INVEGA) PO SCH (21:23)
[2019-01-02 06:52] VITALS: BP 116/71
[2019-01-02] MEDS ORDERED: INVE156I IM (09:19)
--- NOTE | 2019-01-03 16:52 | MHDS ---
DATE OF ADMISSION: 12/20/2018 DATE OF DISCHARGE: 01/02/2019 VITAL SIGNS: Temperature 98.0, pulse 99, respirations 12, blood pressure 116/71. LABORATORIES: Complete blood count (CBC) and differential within normal limits. Chem survey within normal limits except elevated chloride at 108. Urine toxicology screen was negative. Ethyl alcohol level elevated at 0.198. DISCHARGE DIAGNOSES: 1. Schizophrenia, paranoid type. 2. Alcohol use disorder. DISCHARGE MEDICATION: - Invega Sustenna 156 mg intramuscular monthly CHIEF COMPLAINT: The patient was brought in by police department showing bizarre behavior and requesting the police to shoot him. HISTORY OF PRESENT ILLNESS: This is a 33-year-old white male who was brought into the emergency room after the police department found him shaking road signs while obviously intoxicated. During his confrontation with police, he requested that people shoot him. He wanted to go to sleep and never wake up. The patient hit his head against the cruiser window on his way to the hospital causing a laceration. The patient had a previous hospitalization at [facility] in 2018 for psychotic symptoms and suicidal ideation. He does have a history of alcohol, opiate and nicotine usage. PROGRESS ON THE UNIT: The patient was started back on Invega by Dr. Wyman. Initially he was resistant to medication, showing poor medication compliance. Eventually he did start taking his antipsychotic medication. The patient's paranoia gradually improved. Auditory hallucinations improved. Suicidal ideation resolved. He did not show any significant signs of alcohol withdrawal. His behavior was appropriate on the unit. No signs of outbursts. Attendance to groups was minimal. At first he refused to consider going back on the Invega Sustenna, which he had done well on in the past. However, his classification case manager and trauma program manager encouraged him to comply. The patient was given the initial Invega Sustenna loading dose and tolerated it well. He will get the other loading dose in a several days and followup at his outpatient clinic. MENTAL STATUS EXAMINATION: At the time of discharge, mood and affect were good. He had good eye contact. He was still somewhat guarded but was much more verbal than previously. He denied auditory hallucinations. No signs of depression. He was not manic. He was not suicidal. Grooming and hygiene were fair. No signs of impulsivity or dangerousness. No signs of organicity. ASSESSMENT: The patient appears to do well on Invega. Hopefully, he will continue his monthly injections. PLAN: Discharge today with outpatient followup with housing provided [facility]
== END 2019-01-02 13:39 | disposition home or self-care (01) | DRG 750 ==
LOC: M ED 20:09 → M ED INP 12-20 02:53 → M PSY 12-20 03:40
PROVIDERS: ADMIT Psychiatry & Neurology Psychiatry; ATTEND Psychiatry & Neurology Psychiatry
DX: F20.0 Paranoid schizophrenia (principal); E87.6 Hypokalemia; F10.10 Alcohol abuse, uncomplicated; Z88.8 Allergy status to other drugs, medicaments and biological substances; F41.9 Anxiety disorder, unspecified; R51 Headache